=== PATIENT | female | born 1970 | race African-American/Black ===

== ENCOUNTER 2022-11-25 14:58 | Inpatient (IN) | payer MEDICAID, OTHER ==
[~2022-11-25] VITALS: Ht 165.1 cm; Wt 90.9 kg
[2022-11-25 15:58] LABS: Basophils # (auto) 0 10 ^3/uL (0-0.2); Eosinophils # (auto) 0.3 10 ^3/uL (0-0.8); Lymphocytes # (auto) 1.7 10 ^3/uL (0.4-5.4); Nucleated Red Blood Cells % 0.1 %
[2022-11-25 16:00] LABS: Basophils % (auto) 0.7 % (0.0-2.0); Eosinophils % (auto) 5.3 % (0.0-7.0); Hematocrit 31.2 % (36.0-46.0); Hemoglobin 9.3 g/dL (12.2-16.2); Lymphocytes % (auto) 27.6 % (10.0-50.0); Mean Corpuscular Hemoglobin 18.9 pg (28.0-32.0); Mean Corpuscular Hgb Conc. 29.7 g/dL (32.0-36.0); Mean Corpuscular Volume 63.6 fL (80.0-100.0); Monocytes # (auto) 0.6 10 ^3/uL (0-1.3); Monocytes % (auto) 8.9 % (0.0-12.0); Neutrophils # (auto) 3.6 10 ^3/uL (1.6-8.6); Neutrophils % (auto) 57.5 % (37.0-80.0); Red Blood Cells 4.91 10^6/uL (4.0-5.20); White Blood Cell 6.3 10^3/uL (4.4-10.8)
[2022-11-25] MEDS ORDERED: IOHEXOL 350 MG/ML 100ML IJ ONE ×2 (16:19→21:35)
[2022-11-25 16:20] LABS: INR 0.93 (0.9-1.15); Partial Thromboplastin Time 28.1 sec (24.6-33.4)
[2022-11-25 16:31] LABS: Albumin 3.8 g/dL (3.4-5.0); Calcium 8.8 mg/dL (8.5-10.1); Potassium 4.1 mmol/L (3.5-5.1)
[2022-11-25 16:35] LABS: BUN/Creatinine Ratio 18.6 (10.0-20.0); Bilirubin, Total 0.2 mg/dL (0.2-1.0); Total Protein 7.7 g/dL (6.4-8.2)
[2022-11-25] MEDS ORDERED: HYDROcodone-ACET 10/325MG TAB PO ONE (17:30)
[2022-11-25] MEDS ORDERED: POTASSIUM CHL 20MEQ/100ML 100 ML IV ONE (20:15)
[2022-11-25] MEDS ORDERED: FUROSEMIDE 40 MG/4 ML VIAL IV ONE (20:15)
[2022-11-25] MEDS ORDERED: ACETAMINOPHEN 325 MG TAB PO PRN (21:30)
[2022-11-25] MEDS ORDERED: NITROGLYCERIN 0.4 MG SL TAB SL PRN (21:30)
[2022-11-25] MEDS ORDERED: ONDANSETRON HCL 4 MG/2 ML VIAL IV PRN (21:30)
[2022-11-25] MEDS ORDERED: MORPHINE SULFATE INJ 2 MG/ml SYRG IV PRN (21:30)
[2022-11-25] MEDS ORDERED: TEMAZEPAM 15 MG CAP PO PRN (21:30)
[2022-11-25] MEDS: CARVEDILOL 3.125 MG TAB PO SCH (22:26)
[2022-11-25] MEDS: APIXABAN 5 MG TAB PO SCH (22:26)
[2022-11-25] MEDS: ATORVASTATIN 20 MG TAB PO SCH (22:27)
[2022-11-25 23:07] LABS: Urine Bacteria FEW /hpf (None Seen); Urine Blood Negative /uL (Negative); Urine Specific Gravity 1.014 (1.001-1.035); Urine WBC 2 /hpf (0 - 5)
[2022-11-26] MEDS ORDERED: IBUPROFEN 800 MG TAB PO ONE (03:30)
[2022-11-26] MEDS: FUROSEMIDE 20 MG/2 ML VIAL IV SCH ×3 (06:00→17:59)
[2022-11-26 06:34] LABS: Calcium 9.2 mg/dL (8.5-10.1); Potassium 3.7 mmol/L (3.5-5.1)
[2022-11-26 09:30] VITALS: BP 147/78
[2022-11-26] MEDS ORDERED: HYDROcodone-ACET 5/325MG TAB PO ONE (10:30)
[2022-11-26] MEDS ORDERED: FUR20T PO (10:37)
[2022-11-26] MEDS ORDERED: CARV3.1240 PO (10:37)
[2022-11-26] MEDS ORDERED: ATOR40TA52 PO (10:37)
[2022-11-26] MEDS ORDERED: SPIR25TA8 PO (10:37)
[2022-11-26] MEDS ORDERED: DEXA6TAB PO (10:37)
[2022-11-26] MEDS ORDERED: FERR325T20 PO (10:37)
[2022-11-26] MEDS: ASPirin 81 mg TAB PO SCH (10:54)
[2022-11-26] MEDS: CARVEDILOL 3.125 MG TAB PO SCH ×2 (10:55→21:15)
[2022-11-26] MEDS: APIXABAN 5 MG TAB PO SCH ×2 (10:56→21:14)
[2022-11-26] MEDS: LOSARTAN POTASSIUM 25 MG TAB PO SCH (10:56)
[2022-11-26 13:07] VITALS: BP 115/66
[2022-11-26 17:00] VITALS: BP 111/69
[2022-11-26] MEDS: ATORVASTATIN 20 MG TAB PO SCH (21:14)
[2022-11-26] MEDS: HYDROcodone-ACET 5/325MG TAB PO PRN (21:15)
[2022-11-26 22:00] VITALS: BP 132/78
[2022-11-27 05:00] VITALS: BP_SYST 103; BP_SYST 107; BP_DIAS 48; BP_DIAS 82
[2022-11-27] MEDS: HYDROcodone-ACET 5/325MG TAB PO PRN ×2 (05:07→14:33)
[2022-11-27] MEDS: FUROSEMIDE 20 MG/2 ML VIAL IV SCH (06:28)
[2022-11-27 09:00] VITALS: BP 137/74
[2022-11-27] MEDS: ASPirin 81 mg TAB PO SCH (09:07)
[2022-11-27] MEDS: APIXABAN 5 MG TAB PO SCH (09:07)
[2022-11-27] MEDS: LOSARTAN POTASSIUM 25 MG TAB PO SCH (09:08)
[2022-11-27] MEDS: CARVEDILOL 3.125 MG TAB PO SCH (09:08)
[2022-11-27] MEDS ORDERED: diphenhdrAMINE HCL 25 MG CAP PO PRN (11:00)
[2022-11-27] MEDS ORDERED: APIX5TAB PO (11:37)
[2022-11-27] MEDS ORDERED: LOSA25TA15 PO (11:37)
[2022-11-27 13:00] VITALS: BP 107/79
[2022-11-27] MEDS ORDERED: FURO1TAB31 PO (16:00)
[2022-11-27 16:13] VITALS: BP 107/79
== END 2022-11-27 17:45 | disposition home or self-care (01) | DRG 194 ==
LOC: ER 14:58 → TELE 21:31 → TELE-WESTW 11-26 09:28
PROVIDERS: ADMIT Nurse Practitioner; ATTEND Internal Medicine
DX: I11.0 Hypertensive heart disease with heart failure (principal); I24.9 Acute ischemic heart disease, unspecified; E11.9 Type 2 diabetes mellitus without complications; E78.5 Hyperlipidemia, unspecified; I50.33 Acute on chronic diastolic (congestive) heart failure; Z86.718 Personal history of other venous thrombosis and embolism; Z86.73 Personal history of transient ischemic attack (TIA), and cerebral infarction without residual deficits; Z88.8 Allergy status to other drugs, medicaments and biological substances
CPT/HCPCS: 36415; 70450; 71045; 71275; 72125; 80048; 80053; 81001; 83880; 84484; 85025; 85610; 85730; 93005; 93306; 93970; 96374; G0378; J3480

== ENCOUNTER 2023-04-05 12:48 | Emergency (ER) | payer MEDICAID ==
[~2023-04-05] VITALS: Ht 165.1 cm; Wt 96.9 kg
[~2023-04-05 12:48] MED LIST: APIX5TAB PO; ATOR40TA52 PO; CARV3.1240 PO; DEXA6TAB PO; FERR325T20 PO; FUR20T PO; FURO1TAB31 PO; LOSA25TA15 PO; SPIR25TA8 PO
[2023-04-05 14:09] VITALS: BP 144/104; PULSE 117; RESP 16; TEMP 97.9; O2SAT 97
[2023-04-05] MEDS ORDERED: KETOROLAC TROMETH 60MG/2ML VIAL IM ONE (15:00)
[2023-04-05] MEDS ORDERED: DOCUSATE SOD 100 MG CAP PO ONE (15:00)
[2023-04-05] MEDS ORDERED: HYDROcodone-ACET 5/325MG TAB PO ONE (15:00)
[2023-04-05] MEDS ORDERED: NEOMYCIN-POLYM-HC 1% OTIC(EAR) SOLN 10ML LEFT EAR ONE (17:15)
[2023-04-05] MEDS ORDERED: NEOM0.1S10 LEFT EAR (17:51)
[2023-04-05] MEDS ORDERED: ACET500T58 PO (17:51)
== END 2023-04-05 18:09 | disposition home or self-care (01) ==
LOC: ER 12:48
DX: H60.92 Unspecified otitis externa, left ear (principal); I11.0 Hypertensive heart disease with heart failure; I50.9 Heart failure, unspecified; E11.9 Type 2 diabetes mellitus without complications; E78.5 Hyperlipidemia, unspecified; Z86.73 Personal history of transient ischemic attack (TIA), and cerebral infarction without residual deficits; Z79.899 Other long term (current) drug therapy; Z88.8 Allergy status to other drugs, medicaments and biological substances
CPT/HCPCS: 96372; 99284; J1885

== ENCOUNTER 2023-06-24 12:24 | Inpatient (IN) | payer MEDICAID ==
[~2023-06-24] VITALS: Ht 165.1 cm; Wt 100.5 kg
[~2023-06-24 12:24] MED LIST changes: +ACET500T58 PO; +NEOM0.1S10 LEFT EAR
[2023-06-24 13:38] LABS: Red Cell Distribution Width 19.5 % (11.8-14.3)
[2023-06-24 13:39] LABS: Basophils # (auto) 0.1 10 ^3/uL (0-0.2); Basophils % (auto) 1.1 % (0.0-2.0); Eosinophils # (auto) 0.3 10 ^3/uL (0-0.8); Eosinophils % (auto) 4.5 % (0.0-7.0); Hematocrit 32.5 % (36.0-46.0); Hemoglobin 9.8 g/dL (12.2-16.2); Lymphocytes # (auto) 2.1 10 ^3/uL (0.4-5.4); Lymphocytes % (auto) 35.7 % (10.0-50.0); Mean Corpuscular Hemoglobin 21.1 pg (28.0-32.0); Mean Corpuscular Hgb Conc. 30.2 g/dL (32.0-36.0); Monocytes # (auto) 0.4 10 ^3/uL (0-1.3); Monocytes % (auto) 7.1 % (0.0-12.0); Neutrophils % (auto) 51.6 % (37.0-80.0); Nucleated Red Blood Cells % 0.2 %; Red Blood Cells 4.64 10^6/uL (4.0-5.20); White Blood Cell 5.8 10^3/uL (4.4-10.8)
[2023-06-24 13:46] LABS: Prothrombin Time 10.5 sec (9.3-11.8)
[2023-06-24 13:58] LABS: Alanine Aminotransferase 13 U/L (7-40); Albumin 4.6 g/dL (3.2-4.8); Alkaline Phosphatase 97 U/L (46-116); Anion Gap 7 (5-15); Aspartate Aminotransferase 18 U/L (13-40); BUN/Creatinine Ratio 18.3 (10.0-20.0); Bilirubin, Total 0.4 mg/dL (0.2-1.0); Blood Urea Nitrogen 13 mg/dL (9-23); Calcium 9.4 mg/dL (8.7-10.4); Carbon Dioxide 26 mmol/L (20-30); Chloride 104 mmol/L (98-107); Glucose 85 mg/dL (74-106); Potassium 4.4 mmol/L (3.5-5.1); Sodium 137 mmol/L (136-145); Total Protein 7.2 g/dL (5.7-8.2)
[2023-06-24] MEDS ORDERED: FUROSEMIDE 40 MG/4 ML VIAL IV ONE (15:15)
[2023-06-24] MEDS ORDERED: ASPirin 325 MG TAB PO ONE (15:15)
[2023-06-24 15:53] VITALS: PULSE 77; RESP 16; O2SAT 98
[2023-06-24] MEDS ORDERED: MORPHINE SULFATE INJ 2 MG/ml SYRG IV PRN (16:45)
[2023-06-24] MEDS ORDERED: DOCUSATE SOD 100 MG CAP PO PRN (16:45)
[2023-06-24] MEDS ORDERED: NITROGLYCERIN 0.4 MG SL TAB SL PRN (16:45)
[2023-06-24] MEDS ORDERED: ONDANSETRON HCL 4 MG/2 ML VIAL IV PRN (16:45)
[2023-06-24] MEDS ORDERED: LOSA50TA46 PO (18:24)
[2023-06-24] MEDS ORDERED: TRAZ-227 PO (18:24)
[2023-06-24] MEDS ORDERED: PREG-109 PO (18:24)
[2023-06-24] MEDS ORDERED: CARV6.2551 PO (18:24)
[2023-06-24] MEDS ORDERED: hydrALAZINE HCL 20 MG/ML VL IV PRN (18:30)
[2023-06-24] MEDS ORDERED: PREGABALIN CAPSULE 75 MG CAP PO SCH (18:30)
[2023-06-24] MEDS ORDERED: NITROGLYCERIN 2% OINT 1GM PKG TD ONE (18:30)
[2023-06-24 19:54] VITALS: PULSE 77; RESP 12; O2SAT 99
[2023-06-24] MEDS: HYDROcodone-ACET 5/325MG TAB PO PRN (20:35)
[2023-06-24] MEDS: ENOXAPARIN SOD 120 MG/0.8 ML SYRINGE SC SCH (20:35)
[2023-06-24] MEDS: PREGABALIN CAPSULE 75 MG CAP PO SCH (20:35)
[2023-06-24] MEDS ORDERED: PATIENTS OWN MEDICATION (Carvedilol 1 TAB) PO SCH (22:00)
[2023-06-24] MEDS: CARVEDILOL 3.125 MG TAB PO SCH (22:00)
[2023-06-24] MEDS ORDERED: APIXABAN 5 MG TAB PO SCH ×2 (22:00)
[2023-06-24] MEDS: ATORVASTATIN 20 MG TAB PO SCH (22:22)
[2023-06-25] VITALS (8 sets, daily range): BP systolic 97–132; BP diastolic 49–71; PULSE 60–81; RESP 17–20; TEMP 98.1–98.9; O2SAT 97–100
[2023-06-25] MEDS: HYDROcodone-ACET 5/325MG TAB PO PRN ×4 (01:20→22:25)
[2023-06-25] MEDS: PREGABALIN CAPSULE 75 MG CAP PO SCH ×3 (02:11→18:21)
[2023-06-25 05:49] LABS: Monocytes # (auto) 0.6 10 ^3/uL (0-1.3)
[2023-06-25 05:52] LABS: Basophils # (auto) 0.1 10 ^3/uL (0-0.2); Basophils % (auto) 0.8 % (0.0-2.0); Eosinophils # (auto) 0.2 10 ^3/uL (0-0.8); Eosinophils % (auto) 3.6 % (0.0-7.0); Hematocrit 27.8 % (36.0-46.0); Hemoglobin 8.5 g/dL (12.2-16.2); Lymphocytes # (auto) 2.6 10 ^3/uL (0.4-5.4); Lymphocytes % (auto) 38.7 % (10.0-50.0); Mean Corpuscular Hemoglobin 21.6 pg (28.0-32.0); Mean Corpuscular Hgb Conc. 30.4 g/dL (32.0-36.0); Monocytes % (auto) 9.2 % (0.0-12.0); Neutrophils # (auto) 3.2 10 ^3/uL (1.6-8.6); Neutrophils % (auto) 47.7 % (37.0-80.0); Nucleated Red Blood Cells % 0.1 %; Red Blood Cells 3.92 10^6/uL (4.0-5.20); White Blood Cell 6.8 10^3/uL (4.4-10.8)
[2023-06-25 05:59] LABS: Alkaline Phosphatase 84 U/L (46-116); Anion Gap 8 (5-15); BUN/Creatinine Ratio 13.5 (10.0-20.0); Blood Urea Nitrogen 13 mg/dL (9-23); Calcium 8.5 mg/dL (8.7-10.4); Carbon Dioxide 23 mmol/L (20-30); Chloride 105 mmol/L (98-107); Glucose 110 mg/dL (74-106); Potassium 3.7 mmol/L (3.5-5.1); Sodium 136 mmol/L (136-145)
[2023-06-25 06:00] LABS: Albumin 4.1 g/dL (3.2-4.8); Aspartate Aminotransferase 14 U/L (13-40); Bilirubin, Total 0.2 mg/dL (0.2-1.0); Total Protein 6.5 g/dL (5.7-8.2)
[2023-06-25 06:08] LABS: Alanine Aminotransferase < 9 U/L (7-40)
[2023-06-25] MEDS: ENOXAPARIN SOD 120 MG/0.8 ML SYRINGE SC SCH (08:21)
[2023-06-25] MEDS: ACETAMINOPHEN 325 MG TAB PO PRN ×2 (08:37→18:26)
[2023-06-25 08:56] LABS: Hepatitis B Surface Antigen Negative (Negative)
[2023-06-25 09:18] LABS: Hepatitis C Antibody Negative (Negative)
[2023-06-25] MEDS ORDERED: PANTOPRAZOLE 40 MG TAB PO SCH (10:00)
[2023-06-25] MEDS: FUROSEMIDE 20 MG/2 ML VIAL IV SCH (10:00)
[2023-06-25] MEDS ORDERED: LOSARTAN POTASSIUM 50 MG TAB PO SCH ×2 (10:00)
[2023-06-25] MEDS: CARVEDILOL 3.125 MG TAB PO SCH ×2 (10:19→22:00)
[2023-06-25] MEDS ORDERED: ENOXAPARIN SOD 100 MG/1 ML SYRINGE SC SCH (22:00)
[2023-06-25] MEDS: ATORVASTATIN 20 MG TAB PO SCH (22:22)
[2023-06-26] VITALS (10 sets, daily range): BP systolic 127–159; BP diastolic 76–92; PULSE 63–70; RESP 15–22; TEMP 97.9–100; O2SAT 91–100
[2023-06-26] MEDS: PREGABALIN CAPSULE 75 MG CAP PO SCH ×3 (01:47→18:30)
[2023-06-26] MEDS: HYDROcodone-ACET 5/325MG TAB PO PRN ×3 (02:33→15:59)
[2023-06-26 06:34] LABS: Alanine Aminotransferase 10 U/L (7-40); Albumin 4.3 g/dL (3.2-4.8); Alkaline Phosphatase 83 U/L (46-116); Anion Gap 5 (5-15); Aspartate Aminotransferase 14 U/L (13-40); BUN/Creatinine Ratio 18.5 (10.0-20.0); Bilirubin, Total 0.2 mg/dL (0.2-1.0); Blood Urea Nitrogen 15 mg/dL (9-23); Calcium 8.8 mg/dL (8.7-10.4); Carbon Dioxide 25 mmol/L (20-30); Chloride 107 mmol/L (98-107); Glucose 95 mg/dL (74-106); Potassium 4.3 mmol/L (3.5-5.1); Sodium 137 mmol/L (136-145); Total Protein 6.8 g/dL (5.7-8.2)
[2023-06-26 07:10] LABS: Basophils # (auto) 0.1 10 ^3/uL (0-0.2); Basophils % (auto) 1.3 % (0.0-2.0); Eosinophils # (auto) 0.2 10 ^3/uL (0-0.8); Eosinophils % (auto) 4.3 % (0.0-7.0); Hematocrit 29.9 % (36.0-46.0); Hemoglobin 8.9 g/dL (12.2-16.2); Lymphocytes # (auto) 2.6 10 ^3/uL (0.4-5.4); Lymphocytes % (auto) 45.5 % (10.0-50.0); Mean Corpuscular Hemoglobin 20.9 pg (28.0-32.0); Mean Corpuscular Hgb Conc. 29.6 g/dL (32.0-36.0); Mean Corpuscular Volume 70.5 fL (80.0-100.0); Monocytes # (auto) 0.4 10 ^3/uL (0-1.3); Monocytes % (auto) 7.3 % (0.0-12.0); Neutrophils # (auto) 2.3 10 ^3/uL (1.6-8.6); Neutrophils % (auto) 41.6 % (37.0-80.0); Nucleated Red Blood Cells % 0.2 %; Red Blood Cells 4.25 10^6/uL (4.0-5.20); Red Cell Distribution Width 19.3 % (11.8-14.3); White Blood Cell 5.6 10^3/uL (4.4-10.8)
[2023-06-26] MEDS ORDERED: IOHEXOL 350 MG/ML 100ML IJ ONE (07:52)
[2023-06-26] MEDS ORDERED: LIDOCAINE 2%HCL (LOCAL ANESTH.) INJ 20ML MDV ONE (07:52)
[2023-06-26 08:27] LABS: Platelet Estimate Increased
[2023-06-26 08:28] LABS: Hypochromia Moderate
[2023-06-26 08:29] LABS: Ovalocytes MODERATE
[2023-06-26 08:30] LABS: Stomatocytes Moderate; Tear Drop Cells FEW
[2023-06-26] MEDS ORDERED: ANGIOMAX 250 MG VIAL IV ONE (08:35)
[2023-06-26] MEDS ORDERED: fentaNYL CITRATE 100 MCG/2 ML VL ONE (08:35)
[2023-06-26] MEDS ORDERED: SODIUM CHL 0.9% 0 ML ONE (08:36)
[2023-06-26] MEDS ORDERED: MIDAZOLAM HCL 2MG/2ML 2ml VIAL (1mg/ml) ONE (08:36)
[2023-06-26] MEDS ORDERED: HYDROmorphone HCL 2 MG/ML VL/or syr ONE (08:55)
[2023-06-26] MEDS ORDERED: SACUBITRIL-VALSARTAN 24mg/26mg TAB PO SCH (10:00)
[2023-06-26] MEDS ORDERED: APIXABAN 5 MG TAB PO SCH (10:00)
[2023-06-26] MEDS ORDERED: ASPirin-EC 81 mg tab PO SCH (10:00)
[2023-06-26] MEDS ORDERED: PATIENTS OWN MEDICATION (ELIQUIS 5 MG) PO SCH (10:00)
[2023-06-26] MEDS: FUROSEMIDE 20 MG/2 ML VIAL IV SCH (10:00)
[2023-06-26] MEDS: CARVEDILOL 3.125 MG TAB PO SCH (11:04)
[2023-06-26] MEDS ORDERED: SACU1TAB PO (11:55)
[2023-06-26] MEDS ORDERED: FER325T PO (11:55)
[2023-06-26] MEDS ORDERED: EMPA1TAB PO (11:56)
[2023-06-26] MEDS ORDERED: ALBUAER3 IN (15:37)
[2023-06-26] MEDS ORDERED: FLUT1SUS (15:37)
[2023-06-26] MEDS ORDERED: TRAM50TA2 PO (15:37)
[2023-06-26] MEDS ORDERED: FERROUS SULFATE 325mg EC TAB PO SCH (18:00)
[2023-06-26 18:56] LABS: Urine Bacteria FEW /hpf (None Seen); Urine Blood Negative /uL (Negative); Urine Clarity Clear (Clear); Urine Color Colorless (Yellow); Urine Protein, UAD Negative (Negative); Urine Specific Gravity 1.015 (1.001-1.035); Urine Urobilinogen Normal (Negative); Urine WBC 2 /hpf (0 - 5); Urine pH 7.5 (5.0-8.0)
== END 2023-06-26 18:00 | disposition home or self-care (01) | DRG 192 ==
LOC: ER 12:24 → TELE 16:45 → TELE-WESTW 23:29
PROVIDERS: ADMIT Internal Medicine; ATTEND Internal Medicine
PROC: 4A023N7 Measurement of Cardiac Sampling and Pressure, Left Heart, Percutaneous Approach (ICD-10-PCS; principal; 2023-06-26)
PROC: B2111ZZ Fluoroscopy of Multiple Coronary Arteries using Low Osmolar Contrast (ICD-10-PCS; 2023-06-26)
PROC: B2151ZZ Fluoroscopy of Left Heart using Low Osmolar Contrast (ICD-10-PCS; 2023-06-26)
DX: I16.0 Hypertensive urgency (principal); I21.A1 Myocardial infarction type 2; D68.59 Other primary thrombophilia; I82.431 Acute embolism and thrombosis of right popliteal vein; I42.0 Dilated cardiomyopathy; D63.8 Anemia in other chronic diseases classified elsewhere; I11.0 Hypertensive heart disease with heart failure; M94.0 Chondrocostal junction syndrome [Tietze]; I50.22 Chronic systolic (congestive) heart failure; E78.5 Hyperlipidemia, unspecified; E66.01 Morbid (severe) obesity due to excess calories; E11.9 Type 2 diabetes mellitus without complications; Z86.711 Personal history of pulmonary embolism; Z86.718 Personal history of other venous thrombosis and embolism; Z79.01 Long term (current) use of anticoagulants; Z68.36 Body mass index [BMI] 36.0-36.9, adult; Z86.73 Personal history of transient ischemic attack (TIA), and cerebral infarction without residual deficits; Z88.8 Allergy status to other drugs, medicaments and biological substances; Z95.828 Presence of other vascular implants and grafts; Z98.51 Tubal ligation status; Z71.3 Dietary counseling and surveillance
CPT/HCPCS: 36415; 71045; 80053; 81001; 82306; 82607; 82728; 83540; 83550; 83880; 84443; 84484; 85025; 85379; 85610; 85730; 86803; 87340; 93005; 93458; 93971; 96374; 99152; 99153; 99291; G0378; J2250

== ENCOUNTER → 2023-12-18 | Outpatient (CLI) | payer MEDICAID ==
[~2023-12-18] MED LIST changes: +ALBUAER3 IN; -CARV3.1240 PO; +CARV6.2551 PO; +EMPA1TAB PO; +FER325T PO; +FLUT1SUS; +LOSA-534 PO; -LOSA25TA15 PO; +PREG75CA90 PO; +SACU1TAB PO; +TRAM50TA2 PO; +TRAZ-227 PO
[2023-12-18 10:28] LABS: Urine Bacteria None Seen /hpf (None Seen)
[2023-12-18 11:10] LABS: Eosinophils # (auto) 0.4 10 ^3/uL (0-0.8); Hemoglobin 10.2 g/dL (12.2-16.2); Lymphocytes # (auto) 1.9 10 ^3/uL (0.4-5.4); Neutrophils # (auto) 3.6 10 ^3/uL (1.6-8.6); White Blood Cell 6.3 10^3/uL (4.4-10.8)
[2023-12-18 11:12] LABS: Basophils # (auto) 0.1 10 ^3/uL (0-0.2); Eosinophils % (auto) 5.9 % (0.0-7.0); Hematocrit 32.1 % (36.0-46.0); Lymphocytes % (auto) 30.1 % (10.0-50.0); Mean Corpuscular Hemoglobin 23.5 pg (28.0-32.0); Mean Corpuscular Hgb Conc. 31.9 g/dL (32.0-36.0); Mean Corpuscular Volume 73.8 fL (80.0-100.0); Monocytes # (auto) 0.3 10 ^3/uL (0-1.3); Monocytes % (auto) 5.3 % (0.0-12.0); Neutrophils % (auto) 57.7 % (37.0-80.0); Nucleated Red Blood Cells % 0.1 %; Red Blood Cells 4.34 10^6/uL (4.0-5.20)
[2023-12-18 11:15] LABS: Alanine Aminotransferase 20 U/L (7-40); Albumin 4.7 g/dL (3.2-4.8); Alkaline Phosphatase 119 U/L (46-116); Anion Gap 6 (5-15); Aspartate Aminotransferase 16 U/L (13-40); Bilirubin, Direct < 0.1 mg/dL (<0.3); Blood Urea Nitrogen 13 mg/dL (9-23); Calcium 9.5 mg/dL (8.5-10.1); Carbon Dioxide 26 mmol/L (20-30); Chloride 108 mmol/L (98-107); Cholesterol 192 mg/dL (< 200); Glucose 97 mg/dL (74-106); LDL Cholesterol 124 mg/dL (< 100); Potassium 4.2 mmol/L (3.5-5.1); Sodium 140 mmol/L (136-145); Triglycerides 120 mg/dL (< 150)
[2023-12-18 11:16] LABS: Bilirubin, Total 0.2 mg/dL (0.2-1.0); HDL Cholesterol 48 mg/dL (40-59); Red Cell Distribution Width 25.8 % (11.8-14.3); Total Protein 7.4 g/dL (5.7-8.2)
[2023-12-18 11:18] LABS: Urine Blood 3+ /uL (Negative); Urine Clarity Turbid (Clear); Urine Color Light-Orange (Yellow); Urine Mucus FEW (None Seen); Urine Protein, UAD TRACE (Negative); Urine Specific Gravity 1.022 (1.001-1.035); Urine Urobilinogen Normal (Negative); Urine WBC 28 /hpf (0 - 5); Urine pH 5.5 (5.0-9.0)
[2023-12-18 11:19] LABS: % Iron Saturation 5.5 % (15-50)
[2023-12-18 12:47] LABS: Anisocytosis Slight; Hypochromia Slight; Platelet Estimate Increased
== END | disposition home or self-care (01) ==
LOC: LAB 10:11
DX: I11.0 Hypertensive heart disease with heart failure (principal); I50.22 Chronic systolic (congestive) heart failure; R73.03 Prediabetes; E78.5 Hyperlipidemia, unspecified; D64.9 Anemia, unspecified
CPT/HCPCS: 36415; 80053; 80061; 80076; 81001; 82728; 83036; 83540; 83550; 83880; 84443; 85025

== ENCOUNTER → 2023-12-29 | Outpatient (CLI) | payer MEDICAID | END | disposition home or self-care (01) | LOC: XYW 14:45 | PROVIDERS: ATTEND Student in an Organized Health Care Education/Training Program | DX: I51.89 Other ill-defined heart diseases (principal); R06.02 Shortness of breath | CPT/HCPCS: 93306 ==

== ENCOUNTER → 2024-08-01 | Outpatient (CLI) | payer MEDICAID ==
[~2024-08-01] MED LIST changes: -FUR20T PO; +FURO20TA4 PO
[2024-08-01 11:57] LABS: Basophils # (auto) 0 10 ^3/uL (0-0.2); Lymphocytes # (auto) 2.2 10 ^3/uL (0.4-5.4); Monocytes # (auto) 0.4 10 ^3/uL (0-1.3); Neutrophils # (auto) 2.5 10 ^3/uL (1.6-8.6); Nucleated Red Blood Cells % 0.1 %
[2024-08-01 12:00] LABS: Basophils % (auto) 0.8 % (0.0-2.0); Eosinophils # (auto) 0.3 10 ^3/uL (0-0.8); Eosinophils % (auto) 6.4 % (0.0-7.0); Hematocrit 39.4 % (36.0-46.0); Hemoglobin 12.5 g/dL (12.2-16.2); Mean Corpuscular Hemoglobin 24.6 pg (28.0-32.0); Mean Corpuscular Hgb Conc. 31.7 g/dL (32.0-36.0); Mean Corpuscular Volume 77.7 fL (80.0-100.0); Monocytes % (auto) 6.7 % (0.0-12.0); Neutrophils % (auto) 46.1 % (37.0-80.0); Platelet Count (auto) 421 10^3/uL (140-450); Red Blood Cells 5.07 10^6/uL (4.0-5.20); White Blood Cell 5.4 10^3/uL (4.4-10.8)
[2024-08-01 12:20] LABS: Alanine Aminotransferase 17 U/L (7-40); Albumin 4.6 g/dL (3.2-4.8); Alkaline Phosphatase 106 U/L (46-116); Anion Gap 8 (5-15); Aspartate Aminotransferase 18 U/L (13-40); BUN/Creatinine Ratio 18.8 (10.0-20.0); Blood Urea Nitrogen 15 mg/dL (9-23); Calcium 9.9 mg/dL (8.7-10.4); Carbon Dioxide 25 mmol/L (20-31); Chloride 106 mmol/L (98-107); Glucose 88 mg/dL (74-106); Sodium 139 mmol/L (136-145); Triglycerides 120 mg/dL (< 150)
[2024-08-01 12:21] LABS: HDL Cholesterol 48 mg/dL (40-59); Total Protein 7.2 g/dL (5.7-8.2)
[2024-08-01 12:27] LABS: Bilirubin, Total 0.3 mg/dL (0.2-1.0); Cholesterol 215 mg/dL (< 200); LDL Cholesterol 149 mg/dL (< 100)
[2024-08-01 13:04] LABS: Anisocytosis Slight; Hypochromia Slight; Platelet Estimate Adequate
== END | disposition home or self-care (01) ==
LOC: LAB 10:19
PROVIDERS: ATTEND Internal Medicine
DX: I10 Essential (primary) hypertension (principal); I42.8 Other cardiomyopathies; E78.5 Hyperlipidemia, unspecified; R07.9 Chest pain, unspecified
CPT/HCPCS: 36415; 80053; 80061; 85025

== ENCOUNTER 2024-10-05 10:52 | Inpatient (IN) | payer MEDICAID ==
[~2024-10-05] VITALS: Ht 165.1 cm; Wt 110.3 kg
[~2024-10-05 10:52] MED LIST changes: +EZET-10 PO; +FLUT110A8 PO; +HYDR1TAB97 PO; +SACU1TAB7 PO
--- NOTE | 2024-10-05 11:04 | ECG ---
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
--- NOTE | 2024-10-05 11:08 | ED.PDOC ---
HPI Comments 53 year old female presents to the ED with chief complaint of chest pain. Patient reports that she started to experiencing 10/10, sharp, pressure-like substernal chest pain that radiated to her right chest and with associated SOB and nausea since last night when laying in bed. Patient relays that her pain is intermittent. Patient states that she has history of a previous TX and CVA. 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 Patient denies any vomiting, diarrhea, cough, fever, chills, dizziness, or headache. Chief Complaint: Chest Pain Time Seen by MD: 11:05 Primary Care Provider: JAGDEEP Reviewed Notes: Nurses Notes, Medications, Allergies Allergies: Coded Allergies: Tramadol (Verified Allergy, Unknown, 11/25/22) Home Meds Active Scripts Tramadol Hcl (Tramadol Hcl) 50 Mg Tab, 50 MG PO Q8HP PRN for 5 Days, #15 TAB Prov:[facility] 06/26/23 Fluticasone Furoate (Flonase Sensimist) 27.5 Mcg/[place] Mary Grace, 27.5 MCG NA DAILY for 30 Days, ML Prov:[facility]KAR GARCI[facility]HRIN[facility] 06/26/23 Albuterol Sulfate (VENTOLIN MDI) 90 Mcg Ih, 90 MCG IN QID for 30 Days, #1 INH Prov:[facility] 06/26/23 Empagliflozin (Jardiance) 10 Mg Tab, 10 MG PO DAILY for 30 Days, #30 TAB Prov:[facility] 06/26/23 Sacubitril-Valsartan (Entresto 24-26 mg) 1 Tab Tab, 2 TAB PO BID for 30 Days, #120 TAB Prov:[facility] 06/26/23 Ferrous Sulfate (Ferrous Sulfate) 325 Mg Tab, 325 MG PO BIDWM for 30 Days, #60 TAB Prov:[facility] 06/26/23 Acetaminophen (Acetaminophen) 500 Mg Tab, 500 MG PO Q4HP PRN, #30 TAB Prov:RICCARDO SYED PAC 04/05/23 Krzqplgg-Twrtnd-Mqvkxuxc (Maxitrol) 0.1 % [place], 2 DROP LEFT EAR QID for 10 Days, #5 ML Prov:RICCARDO SYED PAC 04/05/23 Furosemide (Lasix) 40 Mg Tab, 40 MG PO DAILY, #30 TAB 1 Refill Prov:ELIZABET GILLESPIE DO 11/27/22 Reported Medications Pregabalin (Pregabalin) 75 Mg Cap, 1 CAP PO Q8H 06/24/23 Trazodone Hcl (Trazodone Hcl) 50 Mg Tab, 1-2 TAB PO QHSP PRN 06/24/23 Losartan Potassium (Losartan Potassium) 50 Mg Tab, 1 TAB PO DAILY 06/24/23 Carvedilol (Carvedilol) 6.25 Mg Tab, 1 TAB PO BID 06/24/23 Apixaban Base (ELIQUIS) 5 Mg Tab, 5 MG PO BID, TAB 11/27/22 Atorvastatin Calcium (ATORVASTATIN CALCIUM) 40 Mg Tab, 1 TAB PO 11/26/22 Dexamethasone (Dexamethasone) 6 Mg Tab, 1 TAB PO DAILY 11/26/22 Ferrous Sulfate (Ferosul) 325 Mg Tab, 325 MG PO BID 11/26/22 Spironolactone (Spironolactone) 25 Mg Tab, 0.5 TAB PO DAILY 11/26/22 Furosemide (Furosemide) 20 Mg Tab, 1 TAB PO DAILY 11/26/22 Information Source: Patient Mode of Arrival: Ambulatory Severity: Moderate Timing: Hours Duration: Since onset Prehospital treatment: None Location: Chest (R), Substernal Radiation: No Radiation Quality: Sharp, Pressure Onset: At Rest Cardiac Risk Factors: Smoker, Family History, Hyperlipidemia, HTN PE Risk Factors: None History of: Similar pain in past, [place], DVT/PE Associated Signs and Symptoms: SOB, N/V Past Medical History PAST MEDICAL HISTORY: CHF, CVA, DM, High Lipids, HTN, TX Past Medical History (Other): DVT, Prediabetic Surgical History: , PTCA Surgical History (Other): Fallopian tube surgery, Chest surgery MANAGER GAMING History: Uterine Fibroids Family History Family History: Reviewed,noncontributory to illness, No family hx of Cancer, No family hx of DM, No family hx of HTN, No family hx ofKidney piyush, No family hx of Liver piyush, No family hx of Lung piyush, No family hx of Stroke, Family hx of heart piyush Social History Smoker: Cigarettes, Less Than 1 Pack/Day Alcohol: Denies ETOH Use Drugs: Denies Drug Use Lives In: Home Constitutional: denies: chills, diaphoresis, fatigue, fever, malaise, sweats, weakness, others EENTM: denies: blurred vision, double vision, ear bleeding, ear discharge, ear drainage, ear pain, ear ringing, eye pain, eye redness, hearing loss, mouth pain, mouth swelling, nasal discharge, nose bleeding, nose congestion, nose pain, photophobia, tearing, throat pain, throat swelling, voice changes, others Respiratory: reports: shortness of breath; denies: cough, hemoptysis, orthopnea, SOB at rest, SOB with excertion, stridor, wheezing, others Cardiovascular: reports: chest pain; denies: dizzy spells, diaphoresis, Dyspnea on exertion, edema, irregular heart beat, left arm pain, lightheadedness, palpitations, PND, syncope, others Gastrointestinal: reports: nausea; denies: abdomen distended, abdominal pain, blood streaked bowels, constipated, diarrhea, dysphagia, difficulty swallowing, hematemesis, melena, poor appetite, poor fluid intake, rectal bleeding, rectal pain, vomiting, others Genitourinary: denies: abnormal vagina bleeding, burning, dyspareunia, dysuria, flank pain, frequency, hematuria, incontinence, pain, , vagina discharge, urgency, others Neurological: denies: dizziness, fainting, headache, left sided numbness, left sided weakness, numbness, paresthesia, pre-existing deficit, right sided numbness, right sided weakness, seizure, speech problems, tingling, tremors, weakness, others Musculoskeletal: denies: back pain, gout, joint pain, joint swelling, muscle pain, muscle stiffness, neck pain, others Integumetry: denies: bruises, change in color, change in hair/nails, dryness, laceration, lesions, lumps, rash, wounds, others Allergic/Immunocompromised: denies: Difficulty Healing, Frequent Infections, Hives, Itching, others Hematologic/Lymphatic: denies: anemia, blood clots, easy bleeding, easy b ruising, swollen glands, others Endocrine: denies: excessive hunger, excessive sweating, excessive thirst, excessive urination, flushing, intolerance to cold, intolerance to heat, unexplained weight gain, unexplained weight loss, others Psychiatric: denies: anxiety, bipolar disorder, depression, hopeless, panic disorder, schizophrenia, sleepless, suicidal, others All Other Systems: Reviewed and Negative Physical Exam General Appearance: Moderate Distress, Obese HEENT: Normal ENT Inspection, Pharynx Normal, TMs Normal Neck: Full Range of Motion, Non-Tender, Normal, Normal Inspection Respiratory: Chest Non-Tender, Lungs Clear, No Accessory Muscle Use, No Respiratory Distress, Normal Breath Sounds Cardiovascular: No Edema, No JVD, No Murmur, No Gallop, Normal Peripheral Pulses, Regular Rate/Rhythm Breast Exam: Deferred Gastrointestinal: No Organomegaly, Non Tender, No Pulsatile Mass, Normal Bowel Sounds, Soft Genitalia: Deferred Pelvic: Deferred Rectal: Deferred Extremities: No calf tenderness, Normal capillary refill, No pedal edema Musculoskeletal : Apperance: Normal Neurologic: Alert, playground monitor II-XII nml as Tested, Motor Weakness, Normal Affect, Normal Mood, No Sensory Deficits Cerebellar Function: Normal Reflexes: Normal Skin: Dry, Normal Color, Warm Lymphatic: No Adenopathy EKG EKG : Pulse Rate (adult): 61 [place]: Normal Cardiac Rhythm: NSR Block: None Hypertrophy: None ST: Normal Comments Low voltage Was a procedure done? Was a procedure done?: No CP Differential Dx Differential Diagnosis: Angina, TX, Pulmonary Embolus Differential Diagnosis: CHF Differential Diagnosis: Pericarditis X-Ray, Labs, Meds, VS Vital Signs Date Time Temp Pulse Resp B/P (MAP) Pulse Ox O2 Delivery O2 Flow Rate FiO2 10/05/24 11:40 98.0 68 18 148/78 (101) 98 98.0 10/05/24 11:40 68 18 98 Room Air 10/05/24 11:08 61 10/05/24 10:57 61 10/05/24 10:53 97.9 65 18 144/73 (96) 97 97.9 Lab Test 10/05/24 11:47 10/05/24 11:03 10/05/24 11:02 Range/Units Troponin I High Sensitivity 13 13 </=34 ng/L Urine Color Colorless Yellow Urine Clarity Clear Clear Urine pH 6.0 5.0-9.0 Urine Specific [place] 1.026 1.001-1.035 Urine Protein Negative Negative Urine Ketones Negative Negative Urine Blood 3+ H Negative /uL Urine Nitrite Negative Negative Urine Bilirubin Negative Negative Urine Urobilinogen Normal Negative mg/dL Urine Leukocyte Esterase Negative Negative /uL Urine RBC 334 0 - 4 /hpf Urine Microscopic WBC 5 0-5 /HPF Urine Squamous Epithelial Cells Few <5 /hpf Urine Bacteria None seen None Seen /hpf Urine Glucose 4+ H Normal mg/dL White Blood Count 7.2 4.4-10.8 10^3/uL Red Blood Count 4.50 4.0-5.20 10^6/uL Hemoglobin 11.8 L 12.2-16.2 g/dL Hematocrit 36.0 36.0-46.0 % Mean Corpuscular Volume 80.0 80.0-100.0 fL Mean Corpuscular Hemoglobin 26.2 L 28.0-32.0 pg Mean Corpuscular Hemoglobin Concent 32.7 32.0-36.0 g/dL Red Cell Distribution Width 19.4 H 11.8-14.3 % Platelet Count 622 H 140-450 10^3/uL Mean Platelet Volume 7.0 6.9-10.8 fL Neutrophils (%) (Auto) 52.3 37.0-80.0 % Lymphocytes (%) (Auto) 35.3 10.0-50.0 % Monocytes (%) (Auto) 5.6 0.0-12.0 % Eosinophils (%) (Auto) 5.9 0.0-7.0 % Basophils (%) (Auto) 0.9 0.0-2.0 % Neutrophils # (Auto) 3.7 1.6-8.6 10 ^3/uL Lymphocytes # (Auto) 2.5 0.4-5.4 10 ^3/uL Monocytes # (Auto) 0.4 0-1.3 10 ^3/uL Eosinophils # (Auto) 0.4 0-0.8 10 ^3/uL Basophils # (Auto) 0.1 0-0.2 10 ^3/uL Nucleated Red Blood Cells 0.1 % D-Dimer, Quantitative 0.20 0.0-0.49 mg/L FEU Sodium Level 139 136-145 mmol/L Potassium Level 5.0 3.5-5.1 mmol/L Chloride Level 107 98-107 mmol/L Carbon Dioxide Level 25 20-31 mmol/L Anion Gap 7 5-15 Blood Urea Nitrogen 17 9-23 mg/dL Creatinine 0.85 0.550-1.02 mg/dL Glomerular Filtration Rate Calc 82 >90 mL/min BUN/Creatinine Ratio 20.0 10.0-20.0 Serum Glucose 102 74-106 mg/dL Calcium Level 9.5 8.7-10.4 mg/dL B-Type Natriuretic Peptide 91.78 0-100 pg/mL Current Medications Medications (Trade) Dose Ordered Sig/Doyle Route Start Time Stop Time Status Last Admin Aspirin 162 mg ONCE ONCE PO 10/05/24 11:15 10/05/24 11:16 DC 10/05/24 11:34 IV Hep-Lock was established The patient was given aspirin here in the emergency department's The patient's urine test is negative for UTI The CBC shows mild anemia with a hemoglobin is 11.8 The chemistry panel is within normal limits The troponin level x2 is negative The patient was given aspirin 162 mg by mouth The patient was being admitted A cardiology consult will be obtained. Images Reviewed?: Images reviewed and evaluated by me Time of 1ST Reevaluation: 12:42 Reevaluation 1ST: Unchanged Patient Education/Counseling: Diagnosis, Treatment Family Education/Counseling: No Family Present Additional Information -Reviewed patient's previous visit(s): 06/24/23 SOB, rule out ACS - The following tests were ordered, and results were reviewed by me: CBC, BMP, Troponin, UA, EKG, Chest XR, D-Dimer, BNP - Additional information was gathered from interviewing the following inde pendent Historian: None - I reviewed and agreed with the following test results read by other provider: Chest XR - I discussed treatments and results with medical personnel and: patient Comprehensive systems review obtained and negative except for what is stated in the HPI. Departure 1 Departure Time of Disposition: 12:43 Impression: Primary Impression: ACS (acute coronary syndrome) Disposition: 09 ADMITTED INPATIENT Admit to: Tele Condition: Fair Critical Care Note Critical Care Time?: No Stability Stability form required: Yes Unstable for transfer: Telemetry monitoring (Telemetry monitoring required), ED Physician Assesment (Clinical assesment) Heart Score Heart Score: Heart Score Response (Comments) Value History Highly Suspicious 2 EKG Normal 0 Age 45-64 1 Risk Factors >3 or Hx ASHD 2 Troponin Normal limit 0 Total 5 I personally scribed for HUMBERTO BROWN MD ([email or web address]) on 10/05/24 at 11:08. Electronically submitted by Benjamin Tan ([email or web address]). I personally scribed for HUMBERTO BROWN MD ([email or web address]) on 10/05/24 at 11:08. Electronically submitted by Benjamin Tan ([email or web address]). HUMBERTO BROWN MD Oct 05, 2024 11:08
[2024-10-05 11:25] LABS: Basophils # (auto) 0.1 10 ^3/uL (0-0.2); Basophils % (auto) 0.9 % (0.0-2.0); Eosinophils # (auto) 0.4 10 ^3/uL (0-0.8); Eosinophils % (auto) 5.9 % (0.0-7.0); Hemoglobin 11.8 g/dL (12.2-16.2); Lymphocytes # (auto) 2.5 10 ^3/uL (0.4-5.4); Lymphocytes % (auto) 35.3 % (10.0-50.0); Mean Corpuscular Hemoglobin 26.2 pg (28.0-32.0); Mean Corpuscular Hgb Conc. 32.7 g/dL (32.0-36.0); Monocytes # (auto) 0.4 10 ^3/uL (0-1.3); Monocytes % (auto) 5.6 % (0.0-12.0); Neutrophils # (auto) 3.7 10 ^3/uL (1.6-8.6); Neutrophils % (auto) 52.3 % (37.0-80.0); Nucleated Red Blood Cells % 0.1 %; Platelet Count (auto) 622 10^3/uL (140-450); Red Cell Distribution Width 19.4 % (11.8-14.3); White Blood Cell 7.2 10^3/uL (4.4-10.8)
--- NOTE | 2024-10-05 11:30 | DVH ---
CHEST RADIOGRAPH Indication: chest pain Technique: Frontal and lateral view of the chest was obtained Comparison: None FINDINGS: Lines and Tubes: None Lungs: Clear Pleura: No effusion. No pneumothorax. Cardiomediastinal contours: Unremarkable Bones: Unremarkable IMPRESSION: 1. No evidence of acute disease.
[2024-10-05 11:33] LABS: Chloride 107 mmol/L (98-107); Sodium 139 mmol/L (136-145)
[2024-10-05 11:34] LABS: Anion Gap 7 (5-15); Calcium 9.5 mg/dL (8.7-10.4); Carbon Dioxide 25 mmol/L (20-31)
[2024-10-05] MEDS: ASPirin 81 mg TAB PO ONE (11:34)
[2024-10-05 11:39] LABS: Blood Urea Nitrogen 17 mg/dL (9-23); Glucose 102 mg/dL (74-106)
[2024-10-05 12:21] LABS: Urine Bacteria None Seen /hpf (None Seen)
[2024-10-05 12:32] LABS: Urine Blood 3+ /uL (Negative); Urine Clarity Clear (Clear); Urine Color Colorless (Yellow); Urine Protein, UAD Negative (Negative); Urine Specific Gravity 1.026 (1.001-1.035); Urine Squamous Epithelial Cell FEW /hpf (<5); Urine Urobilinogen Normal (Negative); Urine WBC 5 /HPF (0-5)
[2024-10-05] MEDS: HYDROcodone-ACET 10/325MG TAB PO ONE (18:52)
--- NOTE | 2024-10-05 19:16 | ECG ---
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
[2024-10-05] MEDS ORDERED: NITROGLYCERIN 0.4 MG SL TAB SL PRN (19:30)
[2024-10-05 20:06] LABS: Chloride 107 mmol/L (98-107); Sodium 138 mmol/L (136-145)
[2024-10-05 20:07] LABS: Anion Gap 9 (5-15); Carbon Dioxide 22 mmol/L (20-31)
[2024-10-05 20:08] LABS: Calcium 9.5 mg/dL (8.7-10.4)
[2024-10-05 20:12] LABS: Glucose 92 mg/dL (74-106)
[2024-10-05 20:13] LABS: BUN/Creatinine Ratio 20.8 (10.0-20.0); Blood Urea Nitrogen 16 mg/dL (9-23)
--- NOTE | 2024-10-05 22:18 | DVHHP2 ---
History of Present Illness Reason for Visit: Chest pain History of Present Illness 53-year-old female presents for evaluation of chest pain. Patient endorses a two day history of substernal pressure-like chest pain that does not radiate. No nausea or vomiting. No shortness a breath. Patient reports intermittent episodes for the past two days. Currently denies any other acute complaints. Past Medical History CVA, CHF COVID diabetes mellitus, hypertension, mi Past Surgical History PTCA, Family History Noncontributory Smoke: <1 pack per day ALCOHOL: none Drugs: None Lives: with Family Review of Systems Review of Systems Review of systems are currently negative otherwise addressed in HPI. Allergies: Coded Allergies: Tramadol (Verified Allergy, Unknown, 11/25/22) Medications Current Medications Medications Dose Ordered Sig/Doyle Route Start Time Stop Time Status Last Admin Dose Admin Apixaban 5 mg BID PO 10/05/24 22:00 Atorvastatin Calcium 40 mg HS PO 10/05/24 22:00 Carvedilol 6.25 mg Q12HR PO 10/05/24 22:00 Furosemide 40 mg DAILY PO 10/06/24 10:00 Losartan Potassium 50 mg DAILY PO 10/06/24 10:00 Sacubitril/ Valsartan 2 tab BID PO 10/06/24 10:00 Ondansetron HCl 4 mg Q4HP PRN IV 10/05/24 19:30 Acetaminophen 650 mg Q6HP PRN PO 10/05/24 19:30 Nitroglycerin 0.4 mg Q5MINP PRN SL 10/05/24 19:30 Morphine Sulfate 2 mg Q30M PRN IV 10/05/24 19:30 Exam Vital Signs Vital Signs Date Time Temp Pulse Resp B/P (MAP) Pulse Ox O2 Delivery O2 Flow Rate FiO2 10/05/24 17:54 98.7 76 20 126/74 (91) 98 98.7 10/05/24 11:40 Room Air Exam Gen: 53-year-old female in no apparent distress, morbidly obese Skin: Warm, dry, normal color and texture, no rash. HEENT: Normocephalic atraumatic, mucous membranes moist and pink. Neck: Cervical and supraclavicular nodes normal without enlargement, trachea is midline, thyroid gland is normal without masses. Pulmonary: Clear to auscultation and percussion bilaterally. Cardiac: Regular rate and rhythm. No murmur Abdomen: Soft, nontender, nondistended, bowel sounds present all 4 quadrants, no guarding, no rigidity, no organomegaly. Extremities: No cyanosis, clubbing, no edema Neuro: Cranial nerves II through XII grossly intact, normal affect and speech, no focal motor deficits. Labs/Xrays ORDERING PHYSICIAN: HUMBERTO BROWN MD PROCEDURE(s): CXR2 - CHEST TWO VIEWS ROUTINE REASON: chest pain ORDER NUMBER(s): [id number], ACCESSION NUMBER(s): [id number] CHEST RADIOGRAPH Indication: chest pain Technique: Frontal and lateral view of the chest was obtained Comparison: None FINDINGS: Lines and Tubes: None Lungs: Clear Pleura: No effusion. No pneumothorax. Cardiomediastinal contours: Unremarkable Bones: Unremarkable IMPRESSION: 1. No evidence of acute disease. Labs Test 10/05/24 14:07 10/05/24 11:03 10/05/24 11:02 Range/Units Sodium Level 138 136-145 mmol/L Potassium Level 5.0 3.5-5.1 mmol/L Chloride Level 107 98-107 mmol/L Carbon Dioxide Level 22 20-31 mmol/L Anion Gap 9 5-15 Blood Urea Nitrogen 16 9-23 mg/dL Creatinine 0.77 0.550-1.02 mg/dL Glomerular Filtration Rate Calc 93 >90 mL/min BUN/Creatinine Ratio 20.8 H 10.0-20.0 Serum Glucose 92 74-106 mg/dL Calcium Level 9.5 8.7-10.4 mg/dL Troponin I High Sensitivity 14 </=34 ng/L Urine Color Colorless Yellow Urine Clarity Clear Clear Urine pH 6.0 5.0-9.0 Urine Specific [place] 1.026 1.001-1.035 Urine Protein Negative Negative Urine Ketones Negative Negative Urine Blood 3+ H Negative /uL Urine Nitrite Negative Negative Urine Bilirubin Negative Negative Urine Urobilinogen Normal Negative mg/dL Urine Leukocyte Esterase Negative Negative /uL Urine RBC 334 0 - 4 /hpf Urine Microscopic WBC 5 0-5 /HPF Urine Squamous Epithelial Cells Few <5 /hpf Urine Bacteria None seen None Seen /hpf Urine Glucose 4+ H Normal mg/dL White Blood Count 7.2 4.4-10.8 10^3/uL Red Blood Count 4.50 4.0-5.20 10^6/uL Hemoglobin 11.8 L 12.2-16.2 g/dL Hematocrit 36.0 36.0-46.0 % Mean Corpuscular Volume 80.0 80.0-100.0 fL Mean Corpuscular Hemoglobin 26.2 L 28.0-32.0 pg Mean Corpuscular Hemoglobin Concent 32.7 32.0-36.0 g/dL Red Cell Distribution Width 19.4 H 11.8-14.3 % Platelet Count 622 H 140-450 10^3/uL Mean Platelet Volume 7.0 6.9-10.8 fL Neutrophils (%) (Auto) 52.3 37.0-80.0 % Lymphocytes (%) (Auto) 35.3 10.0-50.0 % Monocytes (%) (Auto) 5.6 0.0-12.0 % Eosinophils (%) (Auto) 5.9 0.0-7.0 % Basophils (%) (Auto) 0.9 0.0-2.0 % Neutrophils # (Auto) 3.7 1.6-8.6 10 ^3/uL Lymphocytes # (Auto) 2.5 0.4-5.4 10 ^3/uL Monocytes # (Auto) 0.4 0-1.3 10 ^3/uL Eosinophils # (Auto) 0.4 0-0.8 10 ^3/uL Basophils # (Auto) 0.1 0-0.2 10 ^3/uL Nucleated Red Blood Cells 0.1 % D-Dimer, Quantitative 0.20 0.0-0.49 mg/L FEU B-Type Natriuretic Peptide 91.78 0-100 pg/mL Assessment/Plan Assessment/Plan Assessment Chest pain rule out ACS Hypertension Diabetes mellitus History of [place] Status post PTCA Morbid obesity Plan Admit the patient to telemetry to the hospitalist Cardiology consultation Resume home medications Continue treatment per orders Plan discussed with: Patient My Orders Orders - PILO MARY Procedure Category Date Status Time * Cardiology Consult CONS 10/05/24 Transmitted 19:29 Apixaban (Eliquis) PHA 10/05/24 In Process 22:00 Atorvastatin (Lipitor) PHA 10/05/24 In Process 22:00 Carvedilol Tablet PHA 10/05/24 In Process (Coreg Tablet) 22:00 Furosemide Tablet PHA 10/06/24 In Process (Lasix Tablet) 10:00 Losartan Tablet PHA 10/06/24 In Process (Cozaar Tablet) 10:00 Admit ADMIT 10/05/24 Transmitted 19:29 Ondansetron Hcl PHA 10/05/24 In Process (Zofran) 19:30 Cardiac DIET 10/06/24 Transmitted Diet-2gna,Lofat,Lochol Breakfast Condition: Fair MARCELLA 10/05/24 In Process 19:29 Acetaminophen Tablet PHA 10/05/24 In Process (Tylenol Tablet) 19:30 Bedrest With Bathroom [facility] 10/05/24 In Process Privileg 19:29 Nitroglycerin PHA 10/05/24 In Process Sublingual (Ntrostat 19:30 Morphine Sulfate PHA 10/05/24 In Process Injection 19:30 Stat Ekg For Chest [facility] 10/05/24 In Process Pain 19:29 Notify Md Of Changes [facility] 10/05/24 In Process From Base 19:29 Drawbridge Tender For [facility] 10/05/24 In Process 24 Hours 19:29 Emergency Dysrhythmia [facility] 10/05/24 In Process Protocol 19:29 Rhythm Strips Once [facility] 10/05/24 In Process Every Shift 19:29 Oxygen By Nasal RT 10/05/24 Transmitted Cannula 19:29 Sacubitril-Valsartan PHA 10/06/24 In Process (Entresto 24-26 Mg 10:00 Date of Service: Oct 05, 2024 Billing Provider: PILO MARY Common Visit Codes: [id number] INP/OBS CARE (HIGH) PILO MARY Oct 05, 2024 22:18
[2024-10-06] VITALS (9 sets, daily range): BP systolic 101–127; BP diastolic 60–80; PULSE 59–81; RESP 15–22; TEMP 97.6–98.4; O2SAT 96–97
[2024-10-06] MEDS: APIXABAN 5 MG TAB PO SCH (00:31)
[2024-10-06] MEDS: ATORVASTATIN 20 MG TAB PO SCH (00:31)
[2024-10-06] MEDS: CARVEDILOL 3.125 MG TAB PO SCH (00:34)
[2024-10-06] MEDS: HYDROcodone-ACET 5/325MG TAB PO ONE (01:11)
[2024-10-06] MEDS: MORPHINE SULFATE INJ 2 MG/ml SYRG IV PRN (08:02)
--- NOTE | 2024-10-06 08:18 | ECG ---
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
--- NOTE | 2024-10-06 09:55 | DVHINCON2 ---
Date Seen: Oct 06, 2024 Referring Physician LENNY Foley Reason for Consultation Chest pain History of Present Illness This is a 53-year-old female patient who presents to the emergency room with chief complaint of chest pain and palpitations. The patient reports that symptoms began approximately two days prior to emergency room arrival. Cardiology has been consulted at this time for further evaluation. She describ es the pain as intermittent, sharp in nature, midsternal and nonradiating. Alleviating factors include positional changes. Initial twelve lead electrocardiogram reveals normal sinus rhythm with early repolarization pattern. Initial troponin level of 13ng/L with flat trend thereafter. Significant past medical history includes congestive heart failure, nonischemic cardiomyopathy, hypertension, DVT, pulmonary embolism, CVA, morbid obesity, and medical noncompliance. Of note, the patient underwent a coronary angiogram with left heart catheterization on 06/26/2023 without any catheter based intervention. The patient sees vocational rehabilitation administrator in the [facility] in the outpatient setting. Past Medical History Past medical history reviewed. No other significant than mentioned above. Past Surgical History Family History: FH: cancer G8 MOTHER, , Onset:Unknown Family History Family history reviewed. Social History Patient has a 20 pack-year history, smokes approximately 1-2 cigarettes per day Denies any alcohol use Denies any drug use Allergies: Coded Allergies: Tramadol (Verified Allergy, Unknown, 11/25/22) Home Meds Active Scripts Fluticasone Furoate (Flonase Sensimist) 27.5 Mcg/[place], 27.5 MCG NA DAILY for 30 Days, ML Prov:ALEXIS PEPPER RESIDENT 06/26/23 Albuterol Sulfate (VENTOLIN MDI) 90 Mcg Ih, 90 MCG IN QID for 30 Days, #1 INH Prov:ALEXIS PEPPER RESIDENT 06/26/23 Ferrous Sulfate (Ferrous Sulfate) 325 Mg Tab, 325 MG PO BIDWM for 30 Days, #60 TAB Prov:ALEXIS PEPPER RESIDENT 06/26/23 Acetaminophen (Acetaminophen) 500 Mg Tab, 500 MG PO Q4HP PRN, #30 TAB Prov:RICCARDO SYED PAC 04/05/23 Reported Medications Ezetimibe (Ezetimibe) 10 Mg Tab, 1 TAB PO DAILY for 90 Days, #90 10/06/24 Hydrocodone-Acetaminophen (Hydrocodone/Acetaminophen 5-325 mg) 1 Tab Tab, 1 TAB PO Q12HR PRN for PAIN for 30 Days, #60 10/06/24 Fluticasone Propionate (Fluticasone Propionate Hf) 110 Mcg/Act Aer, 1 PUFF PO BID for 60 Days, #12 10/06/24 Sacubitril-Valsartan (Entresto 49-51 mg) 1 Tab Tab, 1 TAB PO BID for 30 Days, #60 10/06/24 Empagliflozin (Jardiance) 10 Mg Tab, 1 TAB PO DAILY for 30 Days, #30 10/06/24 Pregabalin (Pregabalin) 75 Mg Cap, 1 CAP PO Q8H 06/24/23 Trazodone Hcl (Trazodone Hcl) 50 Mg Tab, 1-2 TAB PO QHSP PRN 06/24/23 Losartan Potassium (Losartan Potassium) 50 Mg Tab, 1 TAB PO DAILY 06/24/23 Carvedilol (Carvedilol) 6.25 Mg Tab, 1 TAB PO BID for 30 Days, #60 06/24/23 Apixaban Base (ELIQUIS) 5 Mg Tab, 1 TAB PO BID for 90 Days, #180 11/27/22 Atorvastatin Calcium (ATORVASTATIN CALCIUM) 40 Mg Tab, 1 TAB PO 11/26/22 Dexamethasone (Dexamethasone) 6 Mg Tab, 1 TAB PO DAILY 11/26/22 Ferrous Sulfate (Ferosul) 325 Mg Tab, 325 MG PO BID 11/26/22 Spironolactone (Spironolactone) 25 Mg Tab, 1 TAB PO DAILY for 90 Days, #90 11/26/22 Furosemide (Furosemide) 20 Mg Tab, 1 TAB PO DAILY for 90 Days, #90 11/26/22 Home Meds Home medications reviewed. Current Medications Current Medications Medications (Trade) Dose Ordered Sig/Doyle Route PRN Reason Start Time Stop Time Status Last Admin Apixaban (Eliquis) 5 mg BID PO 10/05/24 22:00 10/06/24 00:31 Atorvastatin Calcium (Lipitor) 40 mg HS PO 10/05/24 22:00 10/06/24 00:31 Carvedilol (Coreg Tablet) 6.25 mg Q12HR PO 10/05/24 22:00 10/06/24 00:34 Furosemide (Lasix Tablet) 40 mg DAILY PO 10/06/24 10:00 Losartan Potassium (Cozaar Tablet) 50 mg DAILY PO 10/06/24 10:00 Sacubitril/ Valsartan (Entresto 24-26 Mg tab) 2 tab BID PO 10/06/24 10:00 Ondansetron HCl (Zofran) 4 mg Q4HP PRN IV NAUSEA / VOMITING 10/05/24 19:30 Acetaminophen (Tylenol Tablet) 650 mg Q6HP PRN PO PAIN SCALE 1-3 OR TEMP>100.4 10/05/24 19:30 Nitroglycerin (Ntrostat Sublingual) 0.4 mg Q5MINP PRN SL FOR CHEST PAIN 10/05/24 19:30 Morphine Sulfate 2 mg Q30M PRN IV FOR CHEST PAIN 10/05/24 19:30 10/06/24 08:02 Review of Systems Constitutional: No symptom reported Ears, Nose, & Throat: No symptom reported Eyes: No symptom reported Neurological: No symptoms reported Pulmonary/Respiratory: No symptoms reported Cardiovascular: Chest pain Gastrointestinal: No symptom reported Genitourinary: No symptom reported Musculoskeletal: No symptom reported Skin: No symptom reported Psychiatric: No symptom reported Endocrine: No symptom reported Hematologic/Lymphatic: No symptom reported Vital Signs Vital Signs Date Time Temp Pulse Resp B/P (MAP) Pulse Ox O2 Delivery O2 Flow Rate FiO2 10/06/24 09:05 98.1 60 22 114/63 (80) 96 98.1 10/06/24 03:11 Room Air* 0 21 Physical Exam General Appearance: Cooperative. Morbidly obese Pulmonary/Respiratory: Clear, bilateral breaths sounds. Cardiovascular/Chest: Regular rate and rhythm. Peripheral Pulses: 2+ Radial (R). 2+ Radial (L). 2+ Pedal (R). 2+ Pedal (L) Abdominal Exam: Normal bowel sounds. Ankle Exam: Negative ankle edema Lower extremities: Negative lower extremity edema Neuro/Mental Status: A/OX4, coherent. Thoughts/Psych: Normal thought pattern. Appropriate mood and affect. Good judgment and insight. Appearance: No acute distress. Skin Exam: Normal inspection. Normal color. Warm and dry. Labs/Diagnostic Data Labs Test 10/06/24 05:08 10/05/24 14:07 10/05/24 11:03 10/05/24 11:02 Range/Units Thyroid Stimulating Hormone (TSH) 4.73 0.55-4.78 uIU/mL Sodium Level 138 136-145 mmol/L Potassium Level 5.0 3.5-5.1 mmol/L Chloride Level 107 98-107 mmol/L Carbon Dioxide Level 22 20-31 mmol/L Anion Gap 9 5-15 Blood Urea Nitrogen 16 9-23 mg/dL Creatinine 0.77 0.550-1.02 mg/dL Glomerular Filtration Rate Calc 93 >90 mL/min BUN/Creatinine Ratio 20.8 H 10.0-20.0 Serum Glucose 92 74-106 mg/dL Calcium Level 9.5 8.7-10.4 mg/dL Troponin I High Sensitivity 14 </=34 ng/L Urine Color Colorless Yellow Urine Clarity Clear Clear Urine pH 6.0 5.0-9.0 Urine Specific [place] 1.026 1.001-1.035 Urine Protein Negative Negative Urine Ketones Negative Negative Urine Blood 3+ H Negative /uL Urine Nitrite Negative Negative Urine Bilirubin Negative Negative Urine Urobilinogen Normal Negative mg/dL Urine Leukocyte Esterase Negative Negative /uL Urine RBC 334 0 - 4 /hpf Urine Microscopic WBC 5 0-5 /HPF Urine Squamous Epithelial Cells Few <5 /hpf Urine Bacteria None seen None Seen /hpf Urine Glucose 4+ H Normal mg/dL White Blood Count 7.2 4.4-10.8 10^3/uL Red Blood Count 4.50 4.0-5.20 10^6/uL Hemoglobin 11.8 L 12.2-16.2 g/dL Hematocrit 36.0 36.0-46.0 % Mean Corpuscular Volume 80.0 80.0-100.0 fL Mean Corpuscular Hemoglobin 26.2 L 28.0-32.0 pg Mean Corpuscular Hemoglobin Concent 32.7 32.0-36.0 g/dL Red Cell Distribution Width 19.4 H 11.8-14.3 % Platelet Count 622 H 140-450 10^3/uL Mean Platelet Volume 7.0 6.9-10.8 fL Neutrophils (%) (Auto) 52.3 37.0-80.0 % Lymphocytes (%) (Auto) 35.3 10.0-50.0 % Monocytes (%) (Auto) 5.6 0.0-12.0 % Eosinophils (%) (Auto) 5.9 0.0-7.0 % Basophils (%) (Auto) 0.9 0.0-2.0 % Neutrophils # (Auto) 3.7 1.6-8.6 10 ^3/uL Lymphocytes # (Auto) 2.5 0.4-5.4 10 ^3/uL Monocytes # (Auto) 0.4 0-1.3 10 ^3/uL Eosinophils # (Auto) 0.4 0-0.8 10 ^3/uL Basophils # (Auto) 0.1 0-0.2 10 ^3/uL Nucleated Red Blood Cells 0.1 % D-Dimer, Quantitative 0.20 0.0-0.49 mg/L FEU B-Type Natriuretic Peptide 91.78 0-100 pg/mL Assessment Chest pain, likely acute pericarditis Chronic compensated HFmrEF, NYHA class III Nonischemic cardiomyopathy Mild mitral valve regurgitation History of PE and DVT (on Eliquis) Hx of Cerebrovascular accident Tobacco use Morbid obesity Medical noncompliance Plan/Recommendation We will continue with the following plan/recommendations (): Case discussed with . Transthoracic echocardiogram reveals EF 40-45%. The patient underwent a coronary angiogram with left heart catheterization on 06/26/2023 without any catheter based intervention. Continue guideline directed medical therapy for CHF as tolerated. Given the patient's clinical presentation, twelve lead electrocardiogram early repolarization pattern, and elevated CRP level, chest pain likely acute pericarditis. We will initiate the patient on pericarditis treatment plan: Colchicine 0.6 mg b.i.d. x3 months, ibuprofen 600 mg Q 8 hours for 1-2 weeks then decrease dose by 200 mg every week for 1-2 weeks. Continue with close cardiac surveillance on continuous telemetry monitoring. Thank you for allowing us to care for this patient. Please call with any questions or concerns. Critical care time spent: 43 minutes This medical document was created using an electronic medical record system with voice recognition software and computerized dictation system. Although this document has been carefully reviewed, there might still be some phonetic and typographical errors. Occasional wrong-word or ``sound-alike substitutions may have occurred due to the inherent limitations of voice recognition software. These areas are purely typographical due to imperfections of the software programs and do not reflect any compromise in the patient's medical care. Please read the chart carefully and recognize, using context, where these substitutions have occurred. Plan discussed with: Patient NYHA Physical activity limitations: Class3(Marked) ordinary (activity causes symtoms) Date of Service: Oct 06, 2024 Billing Provider: CARLOS ELIZALDE Cardiology Common Codes: [id number] INP/OBS CARE (High) Cardiology Consultation Codes: [id number] CONSULT <45MIN CARLOS ELIZALDE Oct 06, 2024 09:54
[2024-10-06] MEDS: LOSARTAN POTASSIUM 50 MG TAB PO SCH (10:12)
[2024-10-06] MEDS: SACUBITRIL-VALSARTAN 24mg/26mg TAB PO SCH (10:13)
[2024-10-06] MEDS: FUROSEMIDE 40 MG TAB PO SCH (10:13)
--- NOTE | 2024-10-06 11:36 | DVHPN2 ---
Reviewed: Care Plan, H&P, Labs, Medications, Previous Orders, Radiology Changes from previous H/P or p: No Changes Objective Vitals Vital Signs Date Time Temp Pulse Resp B/P (MAP) Pulse Ox O2 Delivery O2 Flow Rate FiO2 10/06/24 10:14 63 115/75 10/06/24 09:05 98.1 22 96 98.1 10/06/24 03:11 Room Air* 0 21 Intake/Output Intake and Output 10/06/24 07:00 Intake Total 0 ml Balance 0 ml Intake Oral 0 ml Medications Current Medications Medications Dose Ordered Sig/Doyle Route Start Time Stop Time Status Last Admin Dose Admin Apixaban 5 mg BID PO 10/05/24 22:00 10/06/24 10:12 5 MG Atorvastatin Calcium 40 mg HS PO 10/05/24 22:00 10/06/24 00:31 40 MG Carvedilol 6.25 mg Q12HR PO 10/05/24 22:00 10/06/24 10:14 6.25 MG Furosemide 40 mg DAILY PO 10/06/24 10:00 10/06/24 10:13 40 MG Losartan Potassium 50 mg DAILY PO 10/06/24 10:00 10/06/24 10:12 50 MG Sacubitril/ Valsartan 2 tab BID PO 10/06/24 10:00 10/06/24 10:13 2 TAB Ondansetron HCl 4 mg Q4HP PRN IV 10/05/24 19:30 Acetaminophen 650 mg Q6HP PRN PO 10/05/24 19:30 Nitroglycerin 0.4 mg Q5MINP PRN SL 10/05/24 19:30 Morphine Sulfate 2 mg Q30M PRN IV 10/05/24 19:30 10/06/24 08:02 2 MG Laboratory Results Laboratory Tests 10/05/24 11:02 10/05/24 14:07 Chemistry Test 10/05/24 14:07 10/06/24 05:08 Calcium Level 9.5 mg/dL (8.7-10.4) Magnesium Level Pending Lipid panel Test 10/06/24 05:08 Cholesterol Level Pending HDL Cholesterol Pending Triglycerides Level Pending HgA1c, TSH Test 10/06/24 05:08 Hemoglobin A1c 5.8 % A1C (<5.7) H Thyroid Stimulating Hormone (TSH) 4.73 uIU/mL (0.55-4.78) Urinalysis Test 10/05/24 11:03 Urine Color Colorless (Yellow) Urine Clarity Clear (Clear) Urine pH 6.0 (5.0-9.0) Urine Specific [place] 1.026 (1.001-1.035) Urine Protein Negative (Negative) Urine Ketones Negative (Negative) Urine Blood 3+ /uL (Negative) H Urine Nitrite Negative (Negative) Urine Bilirubin Negative (Negative) Urine Urobilinogen Normal mg/dL (Negative) Urine Leukocyte Esterase Negative /uL (Negative) Urine RBC 334 /hpf (0 - 4) Urine Microscopic WBC 5 /HPF (0-5) Urine Squamous Epithelial Cells Few /hpf (<5) Urine Bacteria None seen /hpf (None Seen) Urine Glucose 4+ mg/dL (Normal) H Labs and/or images reviewed: Labs reviewed by me, Image(s) reviewed by me Assessment/Plan Assessment/Plan Acute Chest pain rule out ACS , treatment per ACS protocol, cardiology consult for Dr. Martínez Hypertension : Cozaar Diabetes mellitus insulin sliding scale History of [place] History of CVA with left-sided hemiplegia four years ago Hyperlipidemia: Lipitor History of bilateral lower extremity DVT: On Eliquis Current smoker: Counseling History of COVID pneumonia Acute on chronic CHF exacerbation: Coreg Entresto Lasix Status post PTCA Morbid obesity Time spent 45 minutes Advanced care planning time 20 minutes Patient is full code Plan discussed with: Patient Date of Service: Oct 06, 2024 Billing Provider: MUNIRA ROCHA MD Common Visit Codes: [id number] INP/OBS CARE(HIGH) Secondary Visit Codes: [id number] CARE PLAN 30 MINUTES MUNIRA ROCHA MD Oct 06, 2024 11:36
[2024-10-06 11:48] LABS: Erythrocyte Sedimentation Rate 15 mm/hr (0-20)
--- NOTE | 2024-10-06 14:08 | DVHSR ---
APPROVED REPORT EXAM: Two-dimensional and M-mode echocardiogram with Doppler and color Doppler. Blood Pressure: 114/63 mmHg INDICATION Evaluate cardiac function RISK FACTORS Obesity: Height: 5' 5", Weight: 240 DIMENSIONS LVDd5.1 (3.8-5.7cm)LA (2D)4.0 (1.9-4.0cm)Aortic Root2.8 (2.0-3.7cm) LVDs4.1 (2.5-4.0cm)LA (MM) (1.9-4.0cm)Aortic Cusp Exc1.7 (1.5-2.0cm) EF (%) 40.0 (55-70%)Rt. Atrium3.9 (1.9-4.0cm)Asc. Aorta cm IVSd1.0 (0.7-1.1cm)RV (D) (1.8-2.4cm) PWd0.8 (0.7-1.1cm) Mitral Valve MitralMitral Stenosis E wave0.70m/sMV Mean GR.mmHg A wave1.00m/sMV Peak GR.mmHg E/A ratio0.72D MVAcm2 Aortic Valve Aortic ValveAortic Stenosis V10.80m/Divya Mean GR.4mmHg V21.40m/Divya Peak GR.8mmHg LVOT Diameter2.3 (1.8-2.4cm)Doppler AVA2.37cm2 Pulmonic Valve V20.70m/s Tricuspid Valve TR Velocity2.30m/s [id number] Conclusion mild to moderate LV dysfunction lvef 40-45% by visual estimate RV not well seen atria not well seen poor image quality no sevre valve abnormalities noted mild mitral regurg
[2024-10-06 16:50] LABS: Magnesium 2.1 mg/dL (1.6-2.6)
[2024-10-06 19:58] LABS: Opiate Scree,Urine Neg (NEGATIVE)
[2024-10-06 20:00] LABS: Amphetamine Screen, Urine Neg (NEGATIVE); Barbiturate Scree,Urine Neg (NEGATIVE); Benzodiazephine Screen, Urine Neg (NEGATIVE); Cannabinoid Screen, Urine Neg (NEGATIVE); Cocaine Screen, Urine Neg (NEGATIVE); Phencyclidine Screen, Urine Neg (NEGATIVE)
[2024-10-06] MEDS: COLCHICINE 0.6 MG CAP PO SCH (21:29)
[2024-10-06] MEDS: IBUPROFEN 600 MG TAB PO SCH (21:30)
[2024-10-07] VITALS (8 sets, daily range): BP systolic 101–109; BP diastolic 56–68; PULSE 56–65; RESP 15–20; TEMP 97.3–97.9; O2SAT 96–100
[2024-10-07] MEDS: ONDANSETRON HCL 4 MG/2 ML VIAL IV PRN (05:58)
--- NOTE | 2024-10-07 08:01 | ECG ---
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
--- NOTE | 2024-10-07 08:02 | ECG ---
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
[2024-10-07] MEDS: PANTOPRAZOLE 40 MG/10 ML VIAL INJ IV SCH (09:10)
[2024-10-07] MEDS: EMPAGLIFLOZIN 10 MG TAB PO SCH (09:14)
[2024-10-07] MEDS: ACETAMINOPHEN 325 MG TAB PO PRN (09:40)
--- NOTE | 2024-10-07 10:06 | DVHPN2 ---
Reviewed: Care Plan, H&P, Labs, Medications, Previous Orders, Radiology Changes from previous H/P or p: No Changes Objective Vitals Vital Signs Date Time Temp Pulse Resp B/P (MAP) Pulse Ox O2 Delivery O2 Flow Rate FiO2 10/07/24 09:14 113/68 10/07/24 09:13 65 10/07/24 08:49 97.3 15 100 97.3 10/06/24 20:00 Room Air* 0 21 Intake/Output Intake and Output 10/07/24 07:00 Intake Total 2650 ml Balance 2650 ml Intake Oral 2650 ml # Voids 8 Medications Current Medications Medications Dose Ordered Sig/Doyle Route Start Time Stop Time Status Last Admin Dose Admin Apixaban 5 mg BID PO 10/05/24 22:00 10/07/24 09:14 5 MG Atorvastatin Calcium 40 mg HS PO 10/05/24 22:00 10/06/24 21:28 40 MG Carvedilol 6.25 mg Q12HR PO 10/05/24 22:00 10/07/24 09:13 6.25 MG Furosemide 40 mg DAILY PO 10/06/24 10:00 10/07/24 09:14 40 MG Sacubitril/ Valsartan 2 tab BID PO 10/06/24 10:00 10/06/24 21:24 2 TAB Ondansetron HCl 4 mg Q4HP PRN IV 10/05/24 19:30 10/07/24 05:58 4 MG Acetaminophen 650 mg Q6HP PRN PO 10/05/24 19:30 10/07/24 09:40 650 MG Nitroglycerin 0.4 mg Q5MINP PRN SL 10/05/24 19:30 Morphine Sulfate 2 mg Q30M PRN IV 10/05/24 19:30 10/06/24 15:31 2 MG Diphenhydramine HCl 25 mg Q8HP PRN PO 10/06/24 15:00 Colchicine 0.6 mg Q12HR PO 10/06/24 22:00 10/07/24 09:13 0.6 MG Ibuprofen 600 mg TID PO 10/06/24 22:00 10/07/24 05:52 600 MG Pantoprazole Sodium 40 mg DAILY IV 10/07/24 10:00 10/07/24 09:10 40 MG Empaglifozin 10 mg DAILY PO 10/07/24 10:00 10/07/24 09:14 10 MG Laboratory Results Laboratory Tests 10/05/24 11:02 10/05/24 14:07 Urinalysis Test 10/05/24 11:03 Urine Color Colorless (Yellow) Urine Clarity Clear (Clear) Urine pH 6.0 (5.0-9.0) Urine Specific [place] 1.026 (1.001-1.035) Urine Protein Negative (Negative) Urine Ketones Negative (Negative) Urine Blood 3+ /uL (Negative) H Urine Nitrite Negative (Negative) Urine Bilirubin Negative (Negative) Urine Urobilinogen Normal mg/dL (Negative) Urine Leukocyte Esterase Negative /uL (Negative) Urine RBC 334 /hpf (0 - 4) Urine Microscopic WBC 5 /HPF (0-5) Urine Squamous Epithelial Cells Few /hpf (<5) Urine Bacteria None seen /hpf (None Seen) Urine Glucose 4+ mg/dL (Normal) H Labs and/or images reviewed: Labs reviewed by me, Image(s) reviewed by me Assessment/Plan Assessment/Plan Acute Chest pain, likely acute pericarditis, Colchicine 0.6 mg b.i.d. x3 months, ibuprofen 600 mg Q 8 hours for 1-2 weeks then decrease dose by 200 mg every week for 1-2 weeks. Cardiology consult by Dr. Martínez appreciated Chronic compensated HFmrEF, NYHA class III, ejection fraction 40 percent Nonischemic cardiomyopathy, cardiac catheterization 06/26/23 negative Mild mitral valve regurgitation History of PE and DVT (on Eliquis) Hx of Cerebrovascular accident Tobacco use Morbid obesity Medical noncompliance Patient still complains of mild precordial chest pain Will DC Thursday Plan discussed with: Patient My Orders Orders - MUNIRA ROCHA MD Procedure Category Date Status Time Diphenhdramine PHA 10/06/24 In Process Capsule (Benadryl 15:00 Date of Service: Oct 07, 2024 Billing Provider: MUNIRA ROCHA MD Common Visit Codes: [id number] INP/OBS CARE(HIGH) MUNIRA ROCHA MD Oct 07, 2024 10:06
[2024-10-07 10:46] LABS: Chloride 106 mmol/L (98-107); Potassium 4.5 mmol/L (3.5-5.1); Sodium 138 mmol/L (136-145)
[2024-10-07 10:47] LABS: Anion Gap 7 (5-15); Calcium 9.6 mg/dL (8.7-10.4); Carbon Dioxide 25 mmol/L (20-31)
[2024-10-07 10:52] LABS: Blood Urea Nitrogen 18 mg/dL (9-23)
[2024-10-07 10:53] LABS: Glucose 132 mg/dL (74-106)
[2024-10-07 12:06] LABS: Hepatitis B Surface Antigen Negative (Negative); Hepatitis C Antibody Negative (Negative)
--- NOTE | 2024-10-07 18:30 | DVHPN2 ---
Consult Progress Note Subjective Other Systems: Patient in normal sinus rhythm on gambling monitor at time of assessment Objective vital signs Vital Sign Date Time Temp Pulse Resp B/P (MAP) Pulse Ox O2 Delivery O2 Flow Rate FiO2 10/07/24 16:26 97.6 61 16 107/68 (81) 96 97.6 10/07/24 08:00 Room Air* 0 21 Total Intake and Output 10/06/24 10/06/24 10/07/24 15:00 23:00 07:00 Intake Total 2100 ml 550 ml Balance 2100 ml 550 ml medications Current Medications Medications Dose Ordered Sig/Doyle Route Start Time Stop Time Status Last Admin Dose Admin Apixaban 5 mg BID PO 10/05/24 22:00 10/07/24 09:14 5 MG Atorvastatin Calcium 40 mg HS PO 10/05/24 22:00 10/06/24 21:28 40 MG Carvedilol 6.25 mg Q12HR PO 10/05/24 22:00 10/07/24 09:13 6.25 MG Furosemide 40 mg DAILY PO 10/06/24 10:00 10/07/24 09:14 40 MG Sacubitril/ Valsartan 2 tab BID PO 10/06/24 10:00 10/07/24 14:23 2 TAB Ondansetron HCl 4 mg Q4HP PRN IV 10/05/24 19:30 10/07/24 05:58 4 MG Acetaminophen 650 mg Q6HP PRN PO 10/05/24 19:30 10/07/24 09:40 650 MG Nitroglycerin 0.4 mg Q5MINP PRN SL 10/05/24 19:30 Morphine Sulfate 2 mg Q30M PRN IV 10/05/24 19:30 10/06/24 15:31 2 MG Diphenhydramine HCl 25 mg Q8HP PRN PO 10/06/24 15:00 Colchicine 0.6 mg Q12HR PO 10/06/24 22:00 10/07/24 09:13 0.6 MG Ibuprofen 600 mg TID PO 10/06/24 22:00 10/07/24 14:23 600 MG Pantoprazole Sodium 40 mg DAILY IV 10/07/24 10:00 10/07/24 09:10 40 MG Empaglifozin 10 mg DAILY PO 10/07/24 10:00 10/07/24 09:14 10 MG Examination: LUNGS:Normal, CVS:Normal, NEURO:Normal laboratory and microbiology Laboratory Tests 10/07/24 10:20 10/05/24 11:02 Test 10/07/24 10:20 Range/Units Serum Glucose 132 H 74-106 mg/dL Problem List/Assessment/Plan Problem List/Assessment/Plan Chest pain, likely acute pericarditis Chronic compensated HFmrEF, NYHA class III Nonischemic cardiomyopathy Mild mitral valve regurgitation History of PE and DVT (on Eliquis) Hx of Cerebrovascular accident Tobacco use Morbid obesity Medical noncompliance Plan/Recommendation (): Case discussed with . Transthoracic echocardiogram reveals EF 40-45%. The patient underwent a coronary angiogram with left heart catheterization on 06/26/2023 without any catheter based intervention. Continue guideline directed medical therapy for CHF as tolerated. Hold MRA (spironolactone) given borderline hyperkalemia. Given the patient's clinical presentation, twelve lead electrocardiogram early repolarization pattern, and elevated CRP level, chest pain likely acute pericarditis. Continue pericarditis treatment plan: Colchicine 0.6 mg b.i.d. x3 months, ibuprofen 600 mg Q 8 hours for 1-2 weeks then decrease dose by 200 mg every week for 1-2 weeks. Continue with close cardiac surveillance on continuous telemetry monitoring. Thank you for allowing us to care for this patient. Please call with any questions or concerns. This medical document was created using an electronic medical record system with voice recognition software and computerized dictation system. Although this document has been carefully reviewed, there might still be some phonetic and typographical errors. Occasional wrong-word or ``sound-alike substitutions may have occurred due to the inherent limitations of voice recognition software. These areas are purely typographical due to imperfections of the software programs and do not reflect any compromise in the patient's medical care. Please read the chart carefully and recognize, using context, where these substitutions have occurred. Plan discussed with: Patient Date of Service: Oct 07, 2024 Billing Provider: CARLOS ELIZALDE Common Visit Codes: [id number] INP/OBS CARE(HIGH) CARLOS ELIZALDE Oct 07, 2024 18:30
[2024-10-07] MEDS: diphenhdrAMINE HCL 25 MG CAP PO PRN (22:01)
[2024-10-08 00:56] VITALS: BP 106/67; PULSE 67; RESP 15; TEMP 98.1; O2SAT 97
[2024-10-08 04:55] VITALS: BP 99/71; PULSE 63; RESP 16; TEMP 97.8; O2SAT 99
[2024-10-08 08:00] VITALS: PULSE 60; RESP 18
[2024-10-08 09:00] VITALS: BP 100/65; PULSE 65; RESP 17; TEMP 97.8; O2SAT 96
[2024-10-08] MEDS: HYDROcodone-ACET 5/325MG TAB PO ONE (09:25)
[2024-10-08] MEDS ORDERED: ALPR1TAB2 PO (09:33)
[2024-10-08] MEDS ORDERED: IBU600T PO (09:33)
[2024-10-08] MEDS ORDERED: COLC1CAP PO (09:33)
--- NOTE | 2024-10-08 09:36 | DVHPN2 ---
Reviewed: Care Plan, H&P, Labs, Medications, Previous Orders, Radiology Changes from previous H/P or p: No Changes Objective Vitals Vital Signs Date Time Temp Pulse Resp B/P (MAP) Pulse Ox O2 Delivery O2 Flow Rate FiO2 10/08/24 09:23 100/65 10/08/24 09:22 65 10/08/24 09:00 97.8 17 96 97.8 10/07/24 20:00 Room Air* 0 21 Intake/Output Intake and Output 10/08/24 07:00 Intake Total 2900 ml Balance 2900 ml Intake Oral 2900 ml # Voids 7 Medications Current Medications Medications Dose Ordered Sig/Doyle Route Start Time Stop Time Status Last Admin Dose Admin Apixaban 5 mg BID PO 10/05/24 22:00 10/08/24 09:25 5 MG Atorvastatin Calcium 40 mg HS PO 10/05/24 22:00 10/07/24 22:02 40 MG Carvedilol 6.25 mg Q12HR PO 10/05/24 22:00 10/07/24 22:03 6.25 MG Furosemide 40 mg DAILY PO 10/06/24 10:00 10/07/24 09:14 40 MG Sacubitril/ Valsartan 2 tab BID PO 10/06/24 10:00 10/07/24 22:03 2 TAB Ondansetron HCl 4 mg Q4HP PRN IV 10/05/24 19:30 10/07/24 05:58 4 MG Acetaminophen 650 mg Q6HP PRN PO 10/05/24 19:30 10/07/24 09:40 650 MG Nitroglycerin 0.4 mg Q5MINP PRN SL 10/05/24 19:30 Morphine Sulfate 2 mg Q30M PRN IV 10/05/24 19:30 10/06/24 15:31 2 MG Diphenhydramine HCl 25 mg Q8HP PRN PO 10/06/24 15:00 10/07/24 22:01 25 MG Colchicine 0.6 mg Q12HR PO 10/06/24 22:00 10/08/24 09:25 0.6 MG Ibuprofen 600 mg TID PO 10/06/24 22:00 10/08/24 05:44 600 MG Pantoprazole Sodium 40 mg DAILY IV 10/07/24 10:00 10/08/24 09:24 40 MG Empaglifozin 10 mg DAILY PO 10/07/24 10:00 10/08/24 09:25 10 MG Laboratory Results Laboratory Tests 10/05/24 11:02 10/07/24 10:20 Chemistry Test 10/07/24 10:20 Calcium Level 9.6 mg/dL (8.7-10.4) Urinalysis Test 10/05/24 11:03 Urine Color Colorless (Yellow) Urine Clarity Clear (Clear) Urine pH 6.0 (5.0-9.0) Urine Specific [place] 1.026 (1.001-1.035) Urine Protein Negative (Negative) Urine Ketones Negative (Negative) Urine Blood 3+ /uL (Negative) H Urine Nitrite Negative (Negative) Urine Bilirubin Negative (Negative) Urine Urobilinogen Normal mg/dL (Negative) Urine Leukocyte Esterase Negative /uL (Negative) Urine RBC 334 /hpf (0 - 4) Urine Microscopic WBC 5 /HPF (0-5) Urine Squamous Epithelial Cells Few /hpf (<5) Urine Bacteria None seen /hpf (None Seen) Urine Glucose 4+ mg/dL (Normal) H Labs and/or images reviewed: Labs reviewed by me, Image(s) reviewed by me Assessment/Plan Assessment/Plan Acute Chest pain, likely acute pericarditis, Colchicine 0.6 mg b.i.d. x3 months, ibuprofen 600 mg Q 8 hours for 1-2 weeks then decrease dose by 200 mg every week for 1-2 weeks. Cardiology consult by Dr. 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
--- NOTE | 2024-10-08 09:40 | DVHDS2 ---
Discharge Summary Date of Admission Oct 05, 2024 at 19:29 Date of Discharge: Oct 08, 2024 Admitting Diagnosis Chest pain Wounds: None Labs/Diagnostic Data: Laboratory Results Test 10/07/24 10:20 10/06/24 18:30 10/06/24 05:08 10/05/24 14:07 Sodium Level 138 mmol/L (136-145) Potassium Level 4.5 mmol/L (3.5-5.1) Chloride Level 106 mmol/L (98-107) Carbon Dioxide Level 25 mmol/L (20-31) Anion Gap 7 (5-15) Blood Urea Nitrogen 18 mg/dL (9-23) Creatinine 1.00 mg/dL (0.550-1.02) Glomerular Filtration Rate Calc 68 mL/min (>90) BUN/Creatinine Ratio 18.0 (10.0-20.0) Serum Glucose 132 mg/dL (74-106) Calcium Level 9.6 mg/dL (8.7-10.4) Urine Opiates Screen Neg (NEGATIVE) Urine Fentanyl Screen Neg (NEGATIVE) Urine Barbiturates Screen Neg (NEGATIVE) Urine Phencyclidine Screen Neg (NEGATIVE) Urine Amphetamines Screen Neg (NEGATIVE) Urine Benzodiazepines Screen Neg (NEGATIVE) Urine Cocaine Screen Neg (NEGATIVE) Urine Cannabinoids Screen Neg (NEGATIVE) Erythrocyte Sedimentation Rate 15 mm/hr (0-20) Hemoglobin A1c 5.8 % A1C (<5.7) Magnesium Level 2.1 mg/dL (1.6-2.6) C-Reactive Protein High Sensitivity 1.15 mg/dL (<1.0) Triglycerides Level 184 mg/dL (< 150) Cholesterol Level 151 mg/dL (< 200) LDL Cholesterol 80 mg/dL (< 100) HDL Cholesterol 46 mg/dL (40-59) Thyroid Stimulating Hormone (TSH) 4.73 uIU/mL (0.55-4.78) Hepatitis B Surface Antigen Negative (Negative) Hepatitis C Antibody Negative (Negative) Troponin I High Sensitivity 14 ng/L (</=34) Test 10/05/24 11:03 10/05/24 11:02 Urine Color Colorless (Yellow) Urine Clarity Clear (Clear) Urine pH 6.0 (5.0-9.0) Urine Specific [place] 1.026 (1.001-1.035) Urine Protein Negative (Negative) Urine Ketones Negative (Negative) Urine Blood 3+ /uL (Negative) Urine Nitrite Negative (Negative) Urine Bilirubin Negative (Negative) Urine Urobilinogen Normal mg/dL (Negative) Urine Leukocyte Esterase Negative /uL (Negative) Urine RBC 334 /hpf (0 - 4) Urine Microscopic WBC 5 /HPF (0-5) Urine Squamous Epithelial Cells Few /hpf (<5) Urine Bacteria None seen /hpf (None Seen) Urine Glucose 4+ mg/dL (Normal) White Blood Count 7.2 10^3/uL (4.4-10.8) Red Blood Count 4.50 10^6/uL (4.0-5.20) Hemoglobin 11.8 g/dL (12.2-16.2) Hematocrit 36.0 % (36.0-46.0) Mean Corpuscular Volume 80.0 fL (80.0-100.0) Mean Corpuscular Hemoglobin 26.2 pg (28.0-32.0) Mean Corpuscular Hemoglobin Concent 32.7 g/dL (32.0-36.0) Red Cell Distribution Width 19.4 % (11.8-14.3) Platelet Count 622 10^3/uL (140-450) Mean Platelet Volume 7.0 fL (6.9-10.8) Neutrophils (%) (Auto) 52.3 % (37.0-80.0) Lymphocytes (%) (Auto) 35.3 % (10.0-50.0) Monocytes (%) (Auto) 5.6 % (0.0-12.0) Eosinophils (%) (Auto) 5.9 % (0.0-7.0) Basophils (%) (Auto) 0.9 % (0.0-2.0) Neutrophils # (Auto) 3.7 10 ^3/uL (1.6-8.6) Lymphocytes # (Auto) 2.5 10 ^3/uL (0.4-5.4) Monocytes # (Auto) 0.4 10 ^3/uL (0-1.3) Eosinophils # (Auto) 0.4 10 ^3/uL (0-0.8) Basophils # (Auto) 0.1 10 ^3/uL (0-0.2) Nucleated Red Blood Cells 0.1 % D-Dimer, Quantitative 0.20 mg/L FEU (0.0-0.49) B-Type Natriuretic Peptide 91.78 pg/mL (0-100) Other Laboratory Tests 10/07/24 10:20 10/05/24 11:02 Brief Hx & Hospital Course: 63-year-old female with a history of CVA chronic current smoking morbid obesity medication noncompliance history of CHF ejection fraction 40 percent history of cardiac catheterization 06/26/2023 which was negative came in complaining of chest pain troponin negative x3 seen by director of hotel operations Dr. 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 [place] the patient has acute pericarditis started on colchicine 0.6 mg p.o. b.i.d. for three months and ibuprofen 600 mg PO TID for two weeks to be gradually decreased. Ejection fraction 40 percent. History of DVT and PE patient on Eliquis. At the time of discharge patient is asymptomatic stable vital signs. Discharged home. Prescription for colchicine ibuprofen and Xanax transmitted to pharmacy. Reviewed all other home medications. Consults/Reason for consult Cardiology Dr. Martínez Operations or Procedures None Condition at Discharge: Fair Final Diagnosis/Problems List Acute Chest pain, likely acute pericarditis, Colchicine 0.6 mg b.i.d. x3 months, ibuprofen 600 mg Q 8 hours for 1-2 weeks then decrease dose by 200 mg every week for 1-2 weeks. Cardiology consult by Dr. 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 Martínez in two weeks Medications: Ibuprofen Colchicine Xanax Transmitted to pharmacy Reviewed all other home medications 39 (Time taken for discharge summary 39 minutes) Discharge Statement: "Patient was advised to return to the ER or call 911 if any headaches, dizziness, shortness of breath, chest pain, abdominal pain, bleeding, fevers, or worsening of medical condition. Patient was counseled about treatment plan, medications, possible side effects, patientverbalized understanding. All questions were answered to the best of my ability. This discharge took greater then 30 minutes in planning, reviewing documentation, counseling the patient, and discussing with other team members." ASSESSMENT ASSESSMENT Hospital Course Improved Assessment Acute Chest pain, likely acute pericarditis, Colchicine 0.6 mg b.i.d. x3 months, ibuprofen 600 mg Q 8 hours for 1-2 weeks then decrease dose by 200 mg every week for 1-2 weeks. Cardiology consult by Dr. 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
[2024-10-08 13:00] VITALS: BP 98/68; PULSE 59; RESP 17; TEMP 98; O2SAT 96
== END 2024-10-08 13:00 | disposition home or self-care (01) | DRG 207 ==
LOC: ER 10:52 → OVERFLOW 19:29 → TELE-EAST 10-06 05:07
PROVIDERS: ADMIT Family Medicine; ATTEND Family Medicine
DX: I30.9 Acute pericarditis, unspecified (principal); I42.8 Other cardiomyopathies; I24.9 Acute ischemic heart disease, unspecified; I50.22 Chronic systolic (congestive) heart failure; I11.0 Hypertensive heart disease with heart failure; E11.9 Type 2 diabetes mellitus without complications; E66.01 Morbid (severe) obesity due to excess calories; I34.0 Nonrheumatic mitral (valve) insufficiency; E78.5 Hyperlipidemia, unspecified; F17.210 Nicotine dependence, cigarettes, uncomplicated; F41.9 Anxiety disorder, unspecified; Z98.61 Coronary angioplasty status; I69.354 Hemiplegia and hemiparesis following cerebral infarction affecting left non-dominant side; Z86.16 Personal history of COVID-19; I25.2 Old myocardial infarction; Z88.8 Allergy status to other drugs, medicaments and biological substances; Z79.84 Long term (current) use of oral hypoglycemic drugs; Z79.01 Long term (current) use of anticoagulants; Z98.891 History of uterine scar from previous surgery; Z86.718 Personal history of other venous thrombosis and embolism; Z86.711 Personal history of pulmonary embolism; Z91.199 Patient's noncompliance with other medical treatment and regimen due to unspecified reason; Z68.41 Body mass index [BMI] 40.0-44.9, adult; Z79.899 Other long term (current) drug therapy
CPT/HCPCS: 36415; 71046; 80048; 80061; 80307; 81001; 83036; 83735; 83880; 84443; 84484; 85025; 85379; 85652; 86141; 86803; 87340; 93005; 93306; G0378; J2405; J2470